=== PATIENT | female | born 1980 | race Caucasian/White ===

== ENCOUNTER 2016-11-25 08:01 | Emergency (ER) | payer SELFPAY ==
[2016-11-25 08:09] VITALS: BP 116/66
--- NOTE | 2016-11-25 09:27 | ER Document Report ---
HPI - HPI Patient complains to provider of: dental pain Onset: This morning Onset/Duration: Sudden Quality of pain: Achy, Throbbing Severity: Severe Pain Level: 4 Context: Patient presents to the emergency department with complaints of right upper dental pain that started this morning. She reports she drank her coffee and had extreme pain. She denies recent fracture. She denies other symptoms such as fever vomiting diarrhea. Associated Symptoms: None Exacerbated by: Other - Hot coffee Relieved by: Denies Similar symptoms previously: No Recently seen / treated by doctor: No - REPRODUCTIVE Reproductive: DENIES: : - DERM Skin Color: Normal Past Medical History - General Information source: Patient Last Menstrual Period: current - Social History Smoking Status: Current Some Day Smoker Cigarette use (# per day): Yes Chew tobacco use (# tins/day): No Frequency of alcohol use: Occasional Drug Abuse: None Family History: CAD, Hyperlipidemia, Hypertension, Malignancy - mother's side: grandpa had a brain tumor, Thyroid Disfunction, Other - mother has hx of migraines Patient has suicidal ideation: No Patient has homicidal ideation: No - Past Medical History Cardiac Medical History: Denies: Hx Heart Attack, Hx Hypertension Pulmonary Medical History: Reports: Hx Pneumonia Neurological Medical History: Reports: Hx Migraine. Denies: Hx Seizures Renal/ Medical History: Denies: Hx Peritoneal Dialysis Musculoskeltal Medical History: Denies Hx Arthritis, Reports Hx Musculoskeletal Deformity, Reports Hx Musculoskeletal Trauma Traumatic Medical History: Reports: Hx Fractures Past Surgical History: Reports: Hx Abdominal Surgery - gastric bypass, Hx Gastric Bypass Surgery, Hx Tubal Ligation. Denies: Hx Pacemaker - Immunizations Immunizations up to date: Yes Hx Diphtheria, Pertussis, Tetanus Vaccination: Yes Vertical Provider Document - CONSTITUTIONAL Agree With Documented VS: Yes Exam Limitations: No Limitations General Appearance: WD/WN, No Apparent Distress - INFECTION CONTROL TRAVEL OUTSIDE OF THE [place] IN LAST 30 DAYS: No - HEENT HEENT: Atraumatic, Normocephalic Mouth Diagram: 1 - No obvious cavity opens mouth wide clear voice no induration no swelling redness no ludwiqa, good airway - NECK Neck: Normal Inspection, Supple. negative: Lymphadenopathy-Left, Lymphadenopathy-Right - RESPIRATORY Respiratory: Breath Sounds Normal, No Respiratory Distress O2 Sat by Pulse Oximetry: 99 - CARDIOVASCULAR Cardiovascular: Regular Rate - MUSCULOSKELETAL/EXTREMETIES Musculoskeletal/Extremeties: LEO REEDER - NEURO Level of Consciousness: Awake, Alert, Appropriate Motor/Sensory: No Motor Deficit - DERM Integumentary: Warm, Dry Course - Re-evaluation Re-evalutation: 11/25/16 Patient provided with dental resource information - Vital Signs Vital signs: Temp Pulse Resp BP Pulse Ox 97.4 F 92 16 116/66 99 11/25/16 08:07 11/25/16 08:07 11/25/16 08:07 11/25/16 08:07 11/25/16 08:07 Discharge - Discharge Clinical Impression: Pain, dental Condition: Stable Disposition: HOME, SELF-CARE Instructions: Penicillin V K ([facility]), Toothache ([facility]), [facility], Ibuprofen (General) ([facility]) Additional Instructions: *You have been evaluated for dental pain *Take medications as prescribed *Follow up with dentist within one week for treatment *Return to ED for worsening condition, changes, needs Prescriptions: Ibuprofen [Motrin 800 mg Tablet] 800 mg PO TID #30 tablet Penicillin V Potassium [Penicillin Vk 500 mg Tablet] 500 mg PO BID #20 tablet Forms: Return to Work
== END 2016-11-25 09:37 | disposition home or self-care (01) ==
LOC: ER 08:01
DX: K08.89 Other specified disorders of teeth and supporting structures (principal); F17.210 Nicotine dependence, cigarettes, uncomplicated
CPT/HCPCS: 99282

== ENCOUNTER 2017-03-24 01:23 | Emergency (ER) | payer BC ==
[2017-03-24] MEDS ORDERED: TRAMADOL HCL 50 MG TABLET PO ONE (02:42)
--- NOTE | 2017-03-24 03:57 | ER Document Report ---
ED General - General Chief Complaint: Fall Stated Complaint: FALL/TAILBONE INJURY Time Seen by Provider: 03/24/17 02:36 Notes: Patient is a 36-year-old female presents for complaint of pain over her sacral area. Patient said falling backwards onto a bar. She has a contusion right over her superior gluteal cleft. She denies any other injuries or trauma. TRAVEL OUTSIDE OF THE [place] IN LAST 30 DAYS: No - Related Data Allergies/Adverse Reactions: No Known Allergies Allergy (Verified 11/25/16 08:07) Past Medical History - Social History Smoking Status: Current Every Day Smoker Chew tobacco use (# tins/day): No Frequency of alcohol use: Occasional Drug Abuse: None Family History: CAD, Hyperlipidemia, Hypertension, Malignancy - mother's side: grandpa had a brain tumor, Thyroid Disfunction, Other - mother has hx of migraines Patient has suicidal ideation: No Patient has homicidal ideation: No - Past Medical History Cardiac Medical History: Denies: Hx Heart Attack, Hx Hypertension Pulmonary Medical History: Reports: Hx Pneumonia Neurological Medical History: Reports: Hx Migraine. Denies: Hx Seizures Renal/ Medical History: Denies: Hx Peritoneal Dialysis Musculoskeltal Medical History: Denies Hx Arthritis, Reports Hx Musculoskeletal Deformity, Reports Hx Musculoskeletal Trauma Traumatic Medical History: Reports: Hx Fractures Past Surgical History: Reports: Hx Abdominal Surgery - gastric bypass, Hx Gastric Bypass Surgery, Hx Tubal Ligation. Denies: Hx Pacemaker - Immunizations Immunizations up to date: Yes Hx Diphtheria, Pertussis, Tetanus Vaccination: Yes Review of Systems - Review of Systems Notes: My Normal Review Basic REVIEW OF SYSTEMS: CONSTITUTIONAL : Denies fever, chills, or sweats. Denies recent illness. MUSCULOSKELETAL: Pain over her superior gluteal cleft. SKIN: Denies rash or skin lesions. NEUROLOGICAL: Denies sensory or motor loss. ALL OTHER SYSTEMS REVIEWED AND NEGATIVE. Physical Exam - Vital signs Vitals: Temp Pulse Resp BP Pulse Ox 97.6 F 108 H 18 143/86 H 97 03/24/17 02:02 03/24/17 02:02 03/24/17 02:02 03/24/17 02:02 03/24/17 02:02 - Notes Notes: General Appearance: Well nourished, alert, cooperative, no acute distress, moderate obvious discomfort. Vitals: reviewed, See vital signs table. Eyes: PERRL, EOMI, Conjuctiva clear Back: Patient has an actual Ad over the gluteal cleft where she fell onto the bar periods regular. His no break in skin. She does have found to palpation over the upper sacrum. Extremities: strength 5/5 in all extremities, good pulses in all extremities, no swelling or tenderness in the extremities, no edema. Skin: warm, dry, appropriate color, no rash Neuro: speech clear, oriented x 3, normal affect, responds appropriately to questions. Patient is standing walk around the room. Her gait is normal. She' s able stand on her toes. Course - Vital Signs Vital signs: Temp Pulse Resp BP Pulse Ox 97.6 F 89 16 139/88 H 96 03/24/17 04:02 03/24/17 04:02 03/24/17 04:02 03/24/17 04:02 03/24/17 04:02 - Transfer of Care Notes: 03/24/17 05:57 X-ray was negative for fracture. Patient will be given pain medication. Informed to return to ER shows worsening pain or she feels unwell. Patient given a work note. Patient agrees with plan will be discharged home. Dictation of this chart was performed using voice recognition software; therefore, there may be some unintended grammatical errors. Discharge - Discharge Clinical Impression: Contusion Qualifiers: Encounter type: initial encounter Contusion area: lower back Qualified Code(s) : S30.0XXA - Contusion of lower back and pelvis, initial encounter Condition: Good Disposition: HOME, SELF-CARE Instructions: Oral Narcotic Medication ([facility]) Additional Instructions: Your x-rays showed no evidence of a break or fracture. I have prescribed you some pain medication to help with the pain. Please do not drive when taking the pain medication. Please follow up with your doctor in 2-3 days for reevaluation. Prescriptions: Tramadol HCl [Ultram 50 mg Tablet] 50 mg PO Q6HP PRN #10 tablet PRN Reason: Forms: Return to Work
[2017-03-24 04:02] VITALS: BP 139/88
== END 2017-03-24 04:01 | disposition home or self-care (01) ==
LOC: ER 01:23
DX: S30.0XXA Contusion of lower back and pelvis, initial encounter (principal); W19.XXXA Unspecified fall, initial encounter; F17.200 Nicotine dependence, unspecified, uncomplicated; Z98.84 Bariatric surgery status
CPT/HCPCS: 72220; 99284

== ENCOUNTER 2017-10-12 08:46 | Outpatient (CLI) | payer BC ==
[~2017-10-12 08:46] MED LIST: FERRIC CARBOXYMALTOSE 750 MG in NORMAL SALINE 250 ML IV PRN; NORMAL SALINE 250 ML IV PRN
[2017-10-12 10:25] VITALS: BP 115/63
== END 2017-10-12 10:31 | disposition home or self-care (01) ==
LOC: II 08:46 → 5TH 08:49 → II 10:31
PROVIDERS: ATTEND Internal Medicine Hematology & Oncology
PROC: 3E033GC Introduction of Other Therapeutic Substance into Peripheral Vein, Percutaneous Approach (ICD-10-PCS; principal; 2017-10-12)
DX: D50.9 Iron deficiency anemia, unspecified (principal); K90.9 Intestinal malabsorption, unspecified
CPT/HCPCS: 96374; J7050; J1439; 96367

== ENCOUNTER 2017-12-31 17:37 | Emergency (ER) | payer SELFPAY ==
--- NOTE | 2017-12-31 18:44 | ER Document Report ---
ED Medical Screen (RME) - General Chief Complaint: Breathing Difficulty Stated Complaint: BACK PAIN Time Seen by Provider: 12/31/17 18:38 Mode of Arrival: Ambulatory Information source: Patient TRAVEL OUTSIDE OF THE [place] IN LAST 30 DAYS: No - HPI Onset: Yesterday - LAST NIGHT Onset/Duration: Constant Context: Patient describes sharp pain of a mechanical nature, worse when she takes a deep breath or coughs. The pain seems to originate in the xiphoid area and radiates bilaterally around the lower rib cage, ending in the intrascapular area and the back. The pain is symmetrical. Quality of pain: Sharp Associated Symptoms: denies: Abdominal pain, Chills, Cough (productive), Cough ( nonproductive), Fever, Nausea, Shortness of breath, Vomiting Exacerbated by: Coughing, Deep breathing Relieved by: Remaining still - Related Data Smoking: Cigarettes Frequency of alcohol use: None Drug Abuse: None Allergies/Adverse Reactions: No Known Allergies Allergy (Verified 12/31/17 17:37) Past Medical History - General Information source: Patient - Social History Cigarette use (# per day): Yes Chew tobacco use (# tins/day): No Frequency of alcohol use: None Drug Abuse: None Lives with: Friend Family history: None - Past Medical History Cardiac Medical History: Reports: None Denies: Hx Heart Attack, Hx Hypertension Pulmonary Medical History: Reports: Hx Pneumonia Neurological Medical History: Reports: Hx Migraine. Denies: Hx Seizures Endocrine Medical History: Reports: None Renal/ Medical History: Reports: None. Denies: Hx Peritoneal Dialysis Malignancy Medical History: Reports: None GI Medical History: Reports: None Musculoskeltal Medical History: Denies Hx Arthritis, Reports Hx Musculoskeletal Deformity, Reports Hx Musculoskeletal Trauma Psychiatric Medical History: Reports: None Traumatic Medical History: Reports: Hx Fractures Past Surgical History: Reports: Hx Abdominal Surgery - gastric bypass, Hx Gastric Bypass Surgery, Hx Tubal Ligation. Denies: Hx Pacemaker - Immunizations Immunizations up to date: Yes Hx Diphtheria, Pertussis, Tetanus Vaccination: Yes Review of Systems - Review of Systems Constitutional: No symptoms reported EENT: No symptoms reported Cardiovascular: See HPI Respiratory: See HPI Gastrointestinal: No symptoms reported Genitourinary: No symptoms reported Musculoskeletal: No symptoms reported Skin: No symptoms reported Neurological/Psychological: No symptoms reported Physical Exam - Vital signs Vitals: Temp Pulse Resp BP Pulse Ox 98.5 F 76 18 128/74 H 100 12/31/17 18:04 12/31/17 18:04 12/31/17 18:04 12/31/17 18:04 12/31/17 18:04 Interpretation: Normal. No: Hypertensive, Tachycardic, Tachypneic - General General appearance: Appears well, Alert In distress: None - HEENT Head: Normocephalic Eyes: Normal Conjunctiva: Normal Ears: Normal Nasal: Normal Mouth/Lips: Normal Mucous membranes: Normal - Respiratory Respiratory status: No respiratory distress Breath sounds: Normal - Cardiovascular Rhythm: Regular Heart sounds: Normal auscultation Murmur: No - Abdominal Inspection: Morbidly Obese - Extremities General upper extremity: Normal inspection General lower extremity: Normal inspection. No: Edema - Neurological Neuro grossly intact: Yes Cognition: Normal Orientation: AAOx4 - Psychological Associated symptoms: Normal affect, Normal mood - Skin Skin Temperature: Warm Skin Moisture: Dry Skin Color: Normal Skin Turgor: Elastic Course - Vital Signs Vital signs: Temp Pulse Resp BP Pulse Ox 98.5 F 76 18 128/74 H 100 12/31/17 18:04 12/31/17 18:04 12/31/17 18:04 12/31/17 18:04 12/31/17 18:04
[2017-12-31] MEDS ORDERED: ASPIRIN 81 MG TABLET, CHEWABLE PO ONE (18:47)
[2017-12-31 19:26] LABS: ABSOLUTE BASOPHILS # (AUTO) 0.1 10^3/uL (0.0-0.2); ABSOLUTE EOSINOPHILS # (AUTO) 0.1 10^3/uL (0.0-0.6); ABSOLUTE LYMPHOCYTES (AUTO) 1.9 10^3/uL (0.5-4.7); ABSOLUTE MONOCYTES (AUTO) 0.6 10^3/uL (0.1-1.4); ABSOLUTE NEUT (AUTO) 5.1 10^3/uL (1.7-8.2); BASOPHILS % (AUTO) 1.1 % (0-2); EOSINOPHILS % (AUTO) 1.3 % (0-6); HEMATOCRIT 40.2 % (36.0-47.0); HEMOGLOBIN 13.6 g/dL (12.0-15.5); LYMPHOCYTES % (AUTO) 24.2 % (13-45); MEAN CORPUSCULAR HEMOGLOBIN 28.2 pg (27.0-33.4); MEAN CORPUSCULAR HGB CONC 33.8 g/dL (32.0-36.0); MEAN CORPUSCULAR VOLUME 83 fl (80-97); MONOCYTES % (AUTO) 7.3 % (3-13); PLATELET COUNT 242 10^3/uL (150-450); RED BLOOD COUNT 4.83 10^6/uL (3.72-5.28); RED CELL DISTRIBUTION WIDTH 23.9 % (11.5-14.0); SEGMENTED NEUTROPHILS % (AUTO) 66.1 % (42-78); TOTAL CELLS COUNTED % (AUTO) 100 %; WHITE BLOOD COUNT 7.7 10^3/uL (4.0-10.5)
[2017-12-31 19:33] LABS: APPEARANCE,URINE CLOUDY; BILIRUBIN,URINE NEGATIVE (NEGATIVE); COLOR,URINE YELLOW; GLUCOSE, URINE NEGATIVE (NEGATIVE); KETONES,URINE NEGATIVE (NEGATIVE); LEUKOCYTE ESTERASE,URINE LARGE (NEGATIVE); NITRITE,URINE POSITIVE (NEGATIVE); PROTEIN,URINE 30 mg/dL (NEGATIVE); URINE SPECIFIC GRAVITY 1.019; UROBILINOGEN,URINE NEGATIVE mg/dL (<2.0)
[2017-12-31 19:44] LABS: ALANINE AMINOTRANSFERASE 27 U/L (9-52); ALBUMIN 4.4 g/dL (3.5-5.0); ALKALINE PHOSPHATASE 90 U/L (38-126); ANION GAP 10 (5-19); ASPARTATE AMINO TRANSFERASE 29 U/L (14-36); BILIRUBIN,DIRECT 0.5 mg/dL (0.0-0.4); BILIRUBIN,TOTAL 0.5 mg/dL (0.2-1.3); BLOOD UREA NITROGEN 16 mg/dL (7-20); CALCIUM 9.4 mg/dL (8.4-10.2); CARBON DIOXIDE 24 mmol/L (22-30); CHLORIDE 106 mmol/L (98-107); CREATINE KINASE 93 U/L (30-135); GLUCOSE 94 mg/dL (75-110); POTASSIUM 4.2 mmol/L (3.6-5.0); SODIUM 139.5 mmol/L (137-145); TOTAL PROTEIN 7.9 g/dL (6.3-8.2)
[2017-12-31 19:56] LABS: CREATINE KINASE MB 0.34 ng/mL (<4.55)
[2017-12-31 19:58] LABS: TROPONIN I < 0.012 ng/mL
--- NOTE | 2017-12-31 20:04 | RADIOLOGY REPORT (SQ) ---
EXAM DESCRIPTION: CHEST PA/LAT COMPLETED DATE/TIME: 12/31/2017 7:27 pm REASON FOR STUDY: CHEST PAIN COMPARISON: 2016. TECHNIQUE: Frontal and lateral radiographic views of the chest acquired. NUMBER OF VIEWS: Two view. LIMITATIONS: None. FINDINGS: LUNGS AND PLEURA: No opacities, masses or pneumothorax. No pleural effusion. MEDIASTINUM AND HILAR STRUCTURES: Small hiatal hernia. Stable contours. No suspicious abnormality. HEART AND VASCULAR STRUCTURES: Heart normal size. No evidence for failure. BONES: No acute findings. HARDWARE: None in the chest. OTHER: No other significant finding. IMPRESSION: No acute cardiopulmonary disease. Small hiatal hernia. TECHNICAL DOCUMENTATION: JOB ID: [id number] [employer]- All Rights Reserved
[2017-12-31 20:09] LABS: ANISOCYTOSIS 3+; OVALOCYTES SLIGHT; PLATELET COMMENT ADEQUATE; POIKILOCYTOSIS SLIGHT
--- NOTE | 2017-12-31 22:06 | ER Document Report ---
ED General - General Chief Complaint: Breathing Difficulty Stated Complaint: BACK PAIN Time Seen by Provider: 12/31/17 18:38 Mode of Arrival: Ambulatory Notes: Patient is a 37-year-old female presents with complaint of pain. She says she first has some pain over the xiphoid process that is worse when she coughs or takes deep breath or moves. Patient second pain is a pain over her bilateral lower back. Patient's says she feels that these pains are will be a separate. She does admit that she is a little bit of dysuria. No abdominal pain. No abnormal vaginal discharge bleeding. No fevers. No leg pain or leg swelling. No history of PE or DVT. No other complaints at this time. TRAVEL OUTSIDE OF THE [place] IN LAST 30 DAYS: No - Related Data Allergies/Adverse Reactions: No Known Allergies Allergy (Verified 12/31/17 17:37) Past Medical History - General Information source: Patient - Social History Smoking Status: Current Every Day Smoker Cigarette use (# per day): Yes Chew tobacco use (# tins/day): No Frequency of alcohol use: None Drug Abuse: None Lives with: Friend Family History: CAD, Hyperlipidemia, Hypertension, Malignancy - mother's side: grandpa had a brain tumor, Thyroid Disfunction, Other - mother has hx of migraines Patient has suicidal ideation: No Patient has homicidal ideation: No - Past Medical History Cardiac Medical History: Reports: None Denies: Hx Heart Attack, Hx Hypertension Pulmonary Medical History: Reports: Hx Pneumonia Neurological Medical History: Reports: Hx Migraine. Denies: Hx Seizures Endocrine Medical History: Reports: None Renal/ Medical History: Reports: None. Denies: Hx Peritoneal Dialysis Malignancy Medical History: Reports: None GI Medical History: Reports: None Musculoskeltal Medical History: Denies Hx Arthritis, Reports Hx Musculoskeletal Deformity, Reports Hx Musculoskeletal Trauma Psychiatric Medical History: Reports: None Traumatic Medical History: Reports: Hx Fractures Past Surgical History: Reports: Hx Abdominal Surgery - gastric bypass, Hx Gastric Bypass Surgery, Hx Tubal Ligation. Denies: Hx Pacemaker - Immunizations Immunizations up to date: Yes Hx Diphtheria, Pertussis, Tetanus Vaccination: Yes Review of Systems - Review of Systems Notes: My Normal Review Basic REVIEW OF SYSTEMS: CONSTITUTIONAL : Denies fever, chills, or sweats. Denies recent illness. EENT: Denies eye, ear, throat, or mouth pain or symptoms. Denies nasal or sinus congestion. CARDIOVASCULAR: Pain over lower chest over the xiphoid process area. RESPIRATORY: Denies cough, cold, or chest congestion. Denies shortness of breath, difficulty breathing, or wheezing. GASTROINTESTINAL: Denies abdominal pain. Denies nausea, vomiting, or diarrhea. Denies constipation. Last BM: GENITOURINARY: Some dysuria. FEMALE GENITOURINARY: Denies vaginal bleeding, abnormal or irregular periods. MUSCULOSKELETAL: Some pain over lower back. SKIN: Denies rash or skin lesions. NEUROLOGICAL: Denies altered mental status or loss of consciousness. Denies headache. Denies weakness or paralysis or loss of use of either side. Denies problems with gait or speech. Denies sensory or motor loss. ALL OTHER SYSTEMS REVIEWED AND NEGATIVE. Physical Exam - Vital signs Vitals: Temp Pulse Resp BP Pulse Ox 98.5 F 76 18 128/74 H 100 12/31/17 18:04 12/31/17 18:04 12/31/17 18:04 12/31/17 18:04 12/31/17 18:04 - Notes Notes: General Appearance: Well nourished, alert, cooperative, no acute distress, mild obvious discomfort. Well Appearing Vitals: reviewed, See vital signs table. Head: no swelling or tenderness to the head Eyes: PERRL, EOMI, Conjuctiva clear Mouth: No decreasd moisture Throat: No tonsillar inflammation, No airway obstruction, No lymphadenopathy Neck: Supple, no neck tenderness, No thyromegaly Chest wall: Some pain to palpation over the xiphoid process over the anterior chest. Lungs: No wheezing, No rales, No rhonci, No accessory muscle use, good air exchange bilaterally. Heart: Normal rate, Regular rythm, No murmur, no rub Abdomen: Normal BS, soft, No rigidity, No abdominal tenderness, No guarding, no rebound, no abdominal masses, no organomegaly Back: Mild pain over the bilateral kidneys to palpation. Extremities: strength 5/5 in all extremities, good pulses in all extremities, no swelling or tenderness in the extremities, no edema. Skin: warm, dry, appropriate color, no rash Neuro: speech clear, oriented x 3, normal affect, responds appropriately to questions. Course - Re-evaluation Re-evalutation: 12/31/17 22:25 Patient presents with 2 different kinds of pain. First pain is back pain. I suspect this probably pain related to her kidney infection. Urinalysis shows overwhelming evidence of a kidney infection. I will place her on antibiotics. Patient also presents with lower pain over the xiphoid area. She is very tender to palpation over this area. Also worse when she takes a deep breath. I suspect this most likely musculoskeletal. She has no risk factors for PE. She is purple negative. I do not feel that she needs any further workup for PE. I did explain this to her. Patient is understanding of this. I informed her that she still have a low threshold to return to ER if she has worsening pain, difficulty breathing, fevers, or feels unwell. Also gave her a list of family doctors follow-up with. Patient agrees with plan and she will be discharged home. Dictation of this chart was performed using voice recognition software; therefore, there may be some unintended grammatical errors. - Vital Signs Vital signs: Temp Pulse Resp BP Pulse Ox 98.3 F 74 18 131/65 H 100 12/31/17 22:46 12/31/17 22:46 12/31/17 22:46 12/31/17 22:46 12/31/17 22:46 - Laboratory Result Diagrams: 12/31/17 19:10 12/31/17 19:10 Laboratory results interpreted by me: 12/31/17 12/31/17 12/31/17 19:10 19:10 19:10 RDW 23.9 H Direct Bilirubin 0.5 H Urine Protein 30 H Urine Blood MODERATE H Urine Nitrite POSITIVE H Ur Leukocyte Esterase LARGE H - EKG Interpretation by Me Additional EKG results interpreted by me: 12/31/17 22:05 EKG is reviewed and interpreted by me. EKG shows normal sinus rhythm with a rate of [address] segment elevation or depression. No ischemic T-wave inversions. W[place] interval, QRS duration, QTc intervals are within normal range. Old EKG for comparison is from April 06, 2013. Discharge - Discharge Clinical Impression: UTI (urinary tract infection) Qualifiers: Urinary tract infection type: site unspecified Hematuria presence: without hematuria Qualified Code(s): N39.0 - Urinary tract infection, site not specified Chest pain Qualifiers: Chest pain type: unspecified Qualified Code(s): R07.9 - Chest pain, unspecified Condition: Good Disposition: HOME, SELF-CARE Instructions: Family Physicians / Practices Additional Instructions: Your urine study shows you have a UTI. Please take the antibiotics as prescribed. Please return to the ER if you have fevers, vomiting, or worsening back pain. Please take ibuprofen for your pain. Please return to the ER if you have worsening chest pain or feel unwell. Your chest pain seems musculoskeletal in that it is reproducible with palpation. Testing looking at your heart was normal. Even though your testing is normal we still encourage you to return to the ER if you have any worsening of your symptoms.Please follow up with a doctor in 5 days for reevaluation. Prescriptions: Cephalexin Monohydrate [Keflex 500 mg Capsule] 500 mg PO BID #14 capsule
--- NOTE | 2017-12-31 22:18 | EKG REPORT ---
SEVERITY:- NORMAL ECG - SINUS RHYTHM : Confirmed by: Charlie Peterson 31-Dec-2017 22:18:07
[2017-12-31] MEDS ORDERED: CEPHALEXIN 500 MG CAPSULE PO ONE (22:26)
[2017-12-31 22:48] VITALS: BP 131/65
== END 2017-12-31 22:58 | disposition home or self-care (01) ==
LOC: ER 17:37
DX: N39.0 Urinary tract infection, site not specified (principal); R07.9 Chest pain, unspecified; R06.02 Shortness of breath; M54.9 Dorsalgia, unspecified; R30.0 Dysuria; F17.210 Nicotine dependence, cigarettes, uncomplicated
CPT/HCPCS: 36415; 71046; 80053; 81001; 82550; 82553; 84484; 85025; 93005; 93010; 99284

== ENCOUNTER 2018-03-07 14:09 | Emergency (ER) | payer OTHER ==
[2018-03-07 14:21] VITALS: BP 103/67
--- NOTE | 2018-03-07 14:31 | ER Document Report ---
HPI - HPI Pain Level: 4 - REPRODUCTIVE Reproductive: DENIES: : Past Medical History - Social History Family History: CAD, Hyperlipidemia, Hypertension, Malignancy - mother's side: grandpa had a brain tumor, Thyroid Disfunction, Other - mother has hx of migraines - Past Medical History Cardiac Medical History: Denies: Hx Heart Attack, Hx Hypertension Pulmonary Medical History: Reports: Hx Pneumonia Neurological Medical History: Reports: Hx Migraine. Denies: Hx Seizures Renal/ Medical History: Denies: Hx Peritoneal Dialysis Musculoskeltal Medical History: Denies Hx Arthritis, Reports Hx Musculoskeletal Deformity, Reports Hx Musculoskeletal Trauma Traumatic Medical History: Reports: Hx Fractures Past Surgical History: Reports: Hx Abdominal Surgery - gastric bypass, Hx Gastric Bypass Surgery, Hx Tubal Ligation. Denies: Hx Pacemaker - Immunizations Immunizations up to date: Yes Hx Diphtheria, Pertussis, Tetanus Vaccination: Yes Vertical Provider Document - INFECTION CONTROL TRAVEL OUTSIDE OF THE [place] IN LAST 30 DAYS: No Course - Vital Signs Vital signs: Temp Pulse Resp BP Pulse Ox 97.9 F 113 H 20 103/67 97 03/07/18 14:14 03/07/18 14:14 03/07/18 14:14 03/07/18 14:14 03/07/18 14:14
[2018-03-07] MEDS ORDERED: DEXAMETHASONE SOD PHOS INJ 10 MG/1 ML VIAL IM ONE (14:33)
[2018-03-07] MEDS ORDERED: KETOROLAC TROMETHAMINE INJ/PF 30 MG/1 ML SDV IM ONE (14:33)
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
== END 2018-03-07 15:00 | disposition home or self-care (01) ==
LOC: ER 14:09
DX: M54.2 Cervicalgia (principal); M54.6 Pain in thoracic spine; M54.5 Low back pain; R51 Headache; Z98.84 Bariatric surgery status; Z98.51 Tubal ligation status
CPT/HCPCS: 99283; 96372; J1885; J1100

== ENCOUNTER 2018-04-30 23:32 | Emergency (ER) | payer OTHER ==
[2018-05-01 00:51] LABS: ABSOLUTE BASOPHILS # (AUTO) 0.1 10^3/uL (0.0-0.2); ABSOLUTE EOSINOPHILS # (AUTO) 0.1 10^3/uL (0.0-0.6); ABSOLUTE LYMPHOCYTES (AUTO) 1.9 10^3/uL (0.5-4.7); ABSOLUTE MONOCYTES (AUTO) 0.5 10^3/uL (0.1-1.4); ABSOLUTE NEUT (AUTO) 3.8 10^3/uL (1.7-8.2); EOSINOPHILS % (AUTO) 1.6 % (0-6); HEMOGLOBIN 12.6 g/dL (12.0-15.5); LYMPHOCYTES % (AUTO) 29.8 % (13-45); MEAN CORPUSCULAR HEMOGLOBIN 27.3 pg (27.0-33.4); MEAN CORPUSCULAR VOLUME 83 fl (80-97); MONOCYTES % (AUTO) 7.4 % (3-13); PLATELET COUNT 254 10^3/uL (150-450); RED BLOOD COUNT 4.61 10^6/uL (3.72-5.28); RED CELL DISTRIBUTION WIDTH 14.3 % (11.5-14.0); SEGMENTED NEUTROPHILS % (AUTO) 60.2 % (42-78); TOTAL CELLS COUNTED % (AUTO) 100 %; WHITE BLOOD COUNT 6.2 10^3/uL (4.0-10.5)
[2018-05-01 00:54] LABS: BILIRUBIN,URINE NEGATIVE (NEGATIVE); COLOR,URINE YELLOW; GLUCOSE, URINE NEGATIVE (NEGATIVE); KETONES,URINE NEGATIVE (NEGATIVE); LEUKOCYTE ESTERASE,URINE LARGE (NEGATIVE); NITRITE,URINE POSITIVE (NEGATIVE); PROTEIN,URINE 30 mg/dL (NEGATIVE); URINE SPECIFIC GRAVITY 1.021; UROBILINOGEN,URINE NEGATIVE mg/dL (<2.0)
[2018-05-01 00:55] LABS: APPEARANCE,URINE HAZY
[2018-05-01 01:05] LABS: ANION GAP 10 (5-19); BLOOD UREA NITROGEN 16 mg/dL (7-20); CALCIUM 9.1 mg/dL (8.4-10.2); CARBON DIOXIDE 27 mmol/L (22-30); CHLORIDE 106 mmol/L (98-107); GLUCOSE 94 mg/dL (75-110); SODIUM 142.6 mmol/L (137-145)
[2018-05-01] MEDS ORDERED: CEFTRIAXONE INJ 1000 MG VIAL IV ONE (01:11)
[2018-05-01] MEDS ORDERED: KETOROLAC TROMETHAMINE 60 MG/2 ML SDV IM ONE (01:11)
[2018-05-01] MEDS ORDERED: LIDOCAINE 1% INJ-PF (10 MG/ML) 30 ML SDV INFIL ONE (01:11)
--- NOTE | 2018-05-01 01:37 | ER Document Report ---
ED General - General Chief Complaint: Flank Pain Stated Complaint: FLANK PAIN Time Seen by Provider: 05/01/18 00:31 Notes: Patient is a 37-year-old female with a history of morbid obesity who presents with bilateral flank tenderness that has been progressively worsening over the last 4 days. She describes as a throbbing, aching, constant pain. Nothing improves or worsens this pain. She denies a history of similar symptoms in the past. She does note some associated mild dysuria. She has not had fever or constitutional symptoms. She has not seen her general doctor regarding today's concerns. She does also note that her left knee has hurt for the past 3-4 weeks , is worsened by bending or standing for prolonged periods of time. She does however note that this is not her reason for the emergency department visit [place]. TRAVEL OUTSIDE OF THE [place] IN LAST 30 DAYS: No - Related Data Allergies/Adverse Reactions: No Known Allergies Allergy (Verified 03/07/18 14:10) Past Medical History - General Information source: Patient - Social History Smoking Status: Current Some Day Smoker Frequency of alcohol use: Occasional Drug Abuse: None Lives with: Spouse/Significant other Family History: CAD, Hyperlipidemia, Hypertension, Malignancy - mother's side: grandpa had a brain tumor, Thyroid Disfunction, Other - mother has hx of migraines Patient has suicidal ideation: No Patient has homicidal ideation: No - Past Medical History Cardiac Medical History: Denies: Hx Heart Attack, Hx Hypertension Pulmonary Medical History: Reports: Hx Pneumonia Neurological Medical History: Reports: Hx Migraine. Denies: Hx Seizures Renal/ Medical History: Denies: Hx Peritoneal Dialysis Musculoskeltal Medical History: Denies Hx Arthritis, Reports Hx Musculoskeletal Deformity, Reports Hx Musculoskeletal Trauma Traumatic Medical History: Reports: Hx Fractures Past Surgical History: Reports: Hx Abdominal Surgery - gastric bypass, Hx Gastric Bypass Surgery, Hx Tubal Ligation. Denies: Hx Pacemaker - Immunizations Immunizations up to date: Yes Hx Diphtheria, Pertussis, Tetanus Vaccination: Yes Review of Systems - Review of Systems Notes: Constitutional: Negative for fever. HENT: Negative for sore throat. Eyes: Negative for visual changes. Cardiovascular: Negative for chest pain. Respiratory: Negative for shortness of breath. Gastrointestinal: Positive for bilateral flank pain Genitourinary: Positive for dysuria. Musculoskeletal: Negative for back pain. Skin: Negative for rash. Neurological: Negative for headaches, weakness or numbness. 10 point ROS negative except as marked above and in HPI. Physical Exam - Vital signs Vitals: Temp Pulse Resp BP Pulse Ox 98.7 F 95 16 115/74 99 04/30/18 23:36 04/30/18 23:36 04/30/18 23:36 04/30/18 23:36 04/30/18 23:36 Interpretation: Normal Notes: PHYSICAL EXAMINATION: GENERAL: Well-appearing, well-nourished and in no acute distress. HEAD: Atraumatic, normocephalic. EYES: Pupils equal round and reactive to light, extraocular movements intact, sclera anicteric, conjunctiva are normal. ENT: nares patent, oropharynx clear without exudates. Moist mucous membranes. NECK: Normal range of motion, supple without lymphadenopathy LUNGS: Breath sounds clear to auscultation bilaterally and equal. No wheezes rales or rhonchi. HEART: Regular rate and rhythm without murmurs ABDOMEN: Soft, nontender, normoactive bowel sounds. No guarding, no rebound. No masses appreciated. Bilateral CVA tenderness to palpation. EXTREMITIES: Normal range of motion, no pitting or edema. No cyanosis. NEUROLOGICAL: No focal neurological deficits. Moves all extremities spontaneously and on command. PSYCH: Normal mood, normal affect. SKIN: Warm, Dry, normal turgor, no rashes or lesions noted. Course - Re-evaluation Re-evalutation: 05/01/18 01:35 Presentation is most consistent with acute pyelonephritis. Laboratories do demonstrate a large amount of white blood cells in the urine as well as bacteria. CVA tenderness is present on exam. I do not suspect an acute appendicitis, biliary pathology, pancreatitis, intra-abdominal abscess, or tubo- ovarian abscess based on history and examination. Patient has been given a dose of ceftriaxone. Patient is able to tolerate oral intake without difficulty. Will be discharged home on 7 day course of cephalexin. A urine culture has been sent. The patient was also complaining of some chronic left knee pain. Knee examination without any erythema, induration, mild pain on palpation of the inferior lateral patella. Suspect arthritis in association with the patient 's morbid obesity. No imaging indicated at this time point. I have encouraged outpatient follow-up for this issue. At this time will discharge with return precautions and follow-up recommendations. Verbal discharge instructions given a the bedside and opportunity for questions given. Medication warnings reviewed. Patient is in agreement with this plan and has verbalized understanding of return precautions and the need for primary care follow-up in the next 24-72 hours. - Vital Signs Vital signs: Temp Pulse Resp BP Pulse Ox 98 F 80 20 117/75 99 05/01/18 01:40 05/01/18 01:40 05/01/18 01:40 05/01/18 01:40 05/01/18 01:40 - Laboratory Result Diagrams: 05/01/18 00:40 05/01/18 00:40 Laboratory results interpreted by me: 05/01/18 05/01/18 00:32 00:40 RDW 14.3 H Urine Protein 30 H Urine Blood MODERATE H Urine Nitrite POSITIVE H Ur Leukocyte Esterase LARGE H Discharge - Discharge Clinical Impression: Pyelonephritis, Bilateral flank pain, Morbid obesity Left knee pain Qualifiers: Chronicity: acute Qualified Code(s): M25.562 - Pain in left knee Condition: Good Disposition: HOME, SELF-CARE Additional Instructions: You have been diagnosed with a condition called pyelonephritis which is an infection involving your kidneys and bladder. You have been given a dose of antibiotics here in the emergency department to help begin to treat this infection. Your also being sent home on antibiotics. Please start taking these later on today when you fill the prescription. Complete the course even if you feel better. Please return if you have persistent vomiting, pass out, have worsening pain, become unable to tolerate fluids, or have any other symptoms that are concerning to you. Please follow-up with your primary care physician in the next 24-48 hours. As we discussed today, please strongly consider losing weight. Your obesity will result in a shorter life and serious diagnoses including heart attacks, stroke, diabetes, high blood pressure, high cholesterol, kidney failure, and will also result in a much less enjoyable life due to these chronic conditions. Focus on gradual life style changes including removing sugared beverages and processed foods from your diet and at least 30 minutes of moderate activity daily. Try to target 4-5lbs of weight loss per month. Her left knee pain is likely due to arthritis as well as your weight. Take the naproxen that has been prescribed as needed for your pain. Continue to apply ice to the area is much your able. Please follow-up with your primary care physician if you do not have improving your symptoms in the next 1-2 weeks. Please return immediately if you develop weakness, numbness, spreading redness from the area, or any other symptoms that are concerning to you. Prescriptions: Cephalexin Monohydrate [Keflex 500 mg Capsule] 500 mg PO Q6H 7 Days capsule Naproxen 500 mg PO BID #60 tablet
[2018-05-01 02:13] VITALS: BP 117/75
== END 2018-05-01 01:45 | disposition home or self-care (01) ==
LOC: ER 23:32
DX: N12 Tubulo-interstitial nephritis, not specified as acute or chronic (principal); R10.9 Unspecified abdominal pain; E66.01 Morbid (severe) obesity due to excess calories; M25.562 Pain in left knee; R30.0 Dysuria; F17.200 Nicotine dependence, unspecified, uncomplicated
CPT/HCPCS: 99284; 96372; 96365; 36415; 87086; 85025; 81025; 87088; 80048; 81001; 87186; J1885; J3490; J0696

== ENCOUNTER 2018-07-10 09:04 | Emergency (ER) | payer SELFPAY ==
--- NOTE | 2018-07-10 09:21 | ER Document Report ---
HPI - HPI Patient complains to provider of: Back pain Onset: Other - 10 years Onset/Duration: Persistent - Daily, Waxing and waning Pain Level: 5 Context: 38-year-old female complaining of right-sided low back pain that radiates into her buttocks for 10 years. It is worse this week without injury, she is crying and cannot stand the pain anymore. She has been to a chiropractor in the past which did not help. She does not have a primary care doctor. She takes Naprosyn 500 mg twice a day. It hurts to bear weight on her right leg. She is in the middle of trying to get disability for this back pain. She has had an x- ray in the past which showed a calcification at the right sacroiliac joint. And some degenerative changes. No IV drug use, no fever, no radiculopathy into the leg, no saddle anesthesia. Associated Symptoms: None Exacerbated by: Movement, Walking Relieved by: Denies - ROS ROS below otherwise negative: Yes Systems Reviewed and Negative: Yes All other systems reviewed and negative - REPRODUCTIVE Reproductive: DENIES: : Past Medical History - General Information source: Patient - Social History Smoking Status: Current Every Day Smoker Lives with: Alone Family History: CAD, Hyperlipidemia, Hypertension, Malignancy - mother's side: grandpa had a brain tumor, Thyroid Disfunction, Other - mother has hx of migraines Pulmonary Medical History: Reports: Hx Pneumonia Neurological Medical History: Reports: Hx Migraine Renal/ Medical History: Denies: Hx Peritoneal Dialysis Musculoskeletal Medical History: Reports Hx Musculoskeletal Deformity, Reports Hx Musculoskeletal Trauma Traumatic Medical History: Reports: Hx Fractures Past Surgical History: Reports: Hx Abdominal Surgery - gastric bypass, Hx Gastric Bypass Surgery, Hx Tubal Ligation - Immunizations Immunizations up to date: Yes Hx Diphtheria, Pertussis, Tetanus Vaccination: Yes Vertical Provider Document - CONSTITUTIONAL Agree With Documented VS: Yes Exam Limitations: No Limitations General Appearance: Severe Distress, Obese Notes: Anxious - INFECTION CONTROL TRAVEL OUTSIDE OF THE [place] IN LAST 30 DAYS: No - MUSCULOSKELETAL/EXTREMETIES Musculoskeletal/Extremeties: MAEW, FROM, Tender - Right sacral iliac into the buttocks area - NEURO Level of Consciousness: Awake Deep Tendon Reflexes: 2+ - Bilateral ankle and patellar - DERM Integumentary: No Rash Course - Re-evaluation Re-evalutation: 07/10/18 10:35 Mild anterior osteophyte off T11-T12, bone island in the right iliac bone no significant change since 2015. 07/10/18 10:46 Patient is crying again and wants something stronger for pain I explained that we do not treat his chronic back pain with opiates or tramadol which is opiate like they are both controlled substances. I did recommend that she get lidocaine patches to place in the area that hurts in her back - Vital Signs Vital signs: Temp Pulse Resp BP Pulse Ox 98.1 F 96 16 122/91 H 99 07/10/18 09:08 07/10/18 09:08 07/10/18 09:08 07/10/18 09:08 07/10/18 09:08 Discharge - Discharge Clinical Impression: Chronic right-sided low back pain Condition: Good Disposition: HOME, SELF-CARE Instructions: Low Back Pain ([facility]), Chronic Back Pain ([facility]), Warm Packs ([facility]), Acetaminophen, Anti-Inflammatory Medication ([facility]), Muscle Relaxers ([facility]) Additional Instructions: See a orthopedist back specialty DrVioleta See chiropractor which may help this time Muscle relaxers Tylenol up to 4000 mg a day Naprosyn 500 mg twice a day that she has been taking is fine as the anti- inflammatory Return to the emergency room if he get any numbness or tingling or inability to walk, fever, any worsening of the symptoms or change in the symptoms Prescriptions: Cyclobenzaprine HCl [Flexeril 10 Mg Tablet] 10 mg PO TIDP PRN #30 tablet PRN Reason: Referrals: JAVIER MAX MD [ACTIVE STAFF] - Follow up as needed
[2018-07-10] MEDS ORDERED: ACETAMINOPHEN 325 MG TABLET PO ONE (09:38)
[2018-07-10] MEDS ORDERED: DIAZEPAM 5 MG TABLET PO ONE (09:38)
[2018-07-10] MEDS ORDERED: KETOROLAC TROMETHAMINE 60 MG/2 ML SDV IM ONE (09:38)
[2018-07-10 10:31] VITALS: BP 113/60
--- NOTE | 2018-07-10 10:34 | RADIOLOGY REPORT (SQ) ---
EXAM DESCRIPTION: L SPINE WHOLE COMPLETED DATE/TIME: 07/10/2018 10:08 am REASON FOR STUDY: chronic low back pain COMPARISON: 12/11/2015 NUMBER OF VIEWS: Five views including obliques. TECHNIQUE: AP, lateral, oblique, and sacral radiographic images acquired of the lumbar spine. LIMITATIONS: None. FINDINGS: MINERALIZATION: Normal. SEGMENTATION: Normal. No transitional anatomy. ALIGNMENT: Normal. VERTEBRAE: Maintained height. No fracture or worrisome bone lesion. DISCS: Preserved height. No significant osteophytes or end plate irregularity. Mild anterior osteop hytes off of the T11-T12 vertebrae. POSTERIOR ELEMENTS: Pedicles and facets are intact. No pars defect or posterior arch defects. HARDWARE: None in the spine. PARASPINAL SOFT TISSUES: Normal. PELVIS: Intact as visualized. No fractures or worrisome bone lesions. SI joints intact. Small bone i sland in the right iliac bone. OTHER: Bilateral tubal ligation clips, unchanged findings. IMPRESSION: 1 No significant interval changes since the prior examination dated 12/11/2015. Normal f orlando view lumbar spine. TECHNICAL DOCUMENTATION: JOB ID: [id number] [employer]- All Rights Reserved Reading location - IP/workstation name: [email or web address]
== END 2018-07-10 10:47 | disposition home or self-care (01) ==
LOC: ER 09:04
DX: G89.29 Other chronic pain (principal); M54.5 Low back pain; F17.200 Nicotine dependence, unspecified, uncomplicated; Z98.84 Bariatric surgery status
CPT/HCPCS: 99283; 96372; 72110; J1885

== ENCOUNTER 2018-09-28 10:59 | Emergency (ER) | payer SELFPAY ==
[2018-09-28] MEDS ORDERED: DIAZEPAM 2 MG TABLET PO ONE (11:28)
[2018-09-28] MEDS ORDERED: HYDROCODONE/ACETAMINOPHEN 5-325 MG TABLET PO ONE (11:28)
--- NOTE | 2018-09-28 12:16 | RADIOLOGY REPORT (SQ) ---
EXAM DESCRIPTION: T SPINE AP/LAT COMPLETED DATE/TIME: 09/28/2018 12:08 pm REASON FOR STUDY: pain back COMPARISON: None. NUMBER OF VIEWS: Two views. TECHNIQUE: AP and lateral radiographic images acquired of the thoracic spine. LIMITATIONS: None. FINDINGS: MINERALIZATION: Normal. ALIGNMENT: Normal. No scoliosis. VERTEBRAE: No fracture or bone lesion. Maintained height, normal segmentation. DISCS: Mild multilevel disc space height loss and osteophytosis. HARDWARE: None in the spine. MEDIASTINUM AND SOFT TISSUES: Normal heart size and aortic contour. No soft tissue abnormality. VISUALIZED LUNG ZHANG: Clear. OTHER: No other significant finding. 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 No fracture or disloca tion. TECHNICAL DOCUMENTATION: JOB ID: [id number] [employer]- All Rights Reserved Reading location - IP/workstation name: [email or web address]
--- NOTE | 2018-09-28 12:23 | ER Document Report ---
ED Neck/Back Problem - General Chief Complaint: Back Pain Stated Complaint: BACK/ABDOMINAL PAIN Time Seen by Provider: 09/28/18 11:27 Mode of Arrival: Ambulatory Information source: Patient Notes: Chief complaint: Mid back pain History of complain:( obtained from----patient) 38 years old female presents today with mid back pain radiating to the front since yesterday. Anytime she moves the pain is increased in intensity. No obvious trauma but she has history of degenerative disease of the lower back. Onset: As above Duration: Gradual Severity: Moderate Quality: Sharp Context: As above Exacerbating factor and relieving factors: Any change of position REVIEW OF SYSTEMS: CONSTITUTIONAL : Denies fever, chills, or sweats. Denies recent illness. EENT: Denies eye, ear, throat, or mouth pain or symptoms. Denies nasal or sinus congestion or discharge. Denies throat, tongue, or mouth swelling or difficulty swallowing. CARDIOVASCULAR: Denies chest pain. Denies palpitations or racing or irregular heart beat. Denies ankle edema. RESPIRATORY: Denies cough, cold, or chest congestion. Denies shortness of breath, difficulty breathing, or wheezing. GASTROINTESTINAL: Denies distention. Denies nausea, vomiting, or diarrhea. Denies blood in vomitus, stools, or per rectum. Denies black, tarry stools. Denies constipation. GENITOURINARY: Denies difficulty urinating, painful urination, burning, frequency, blood in urine, or discharge. FEMALE GENITOURINARY: Denies vaginal bleeding, heavy or abnormal periods, irregular periods. Denies vaginal discharge or odor. MUSCULOSKELETAL: Denies back or neck pain or stiffness. Denies joint pain or swelling. SKIN: Denies rash, lesions or sores. HEMATOLOGIC : Denies easy bruising or bleeding. LYMPHATIC: Denies swollen, enlarged glands. NEUROLOGICAL: Denies confusion or altered mental status. Denies passing out or loss of consciousness. Denies dizziness or lightheadedness. Denies headache. Denies weakness or paralysis or loss of use of either side. Denies problems with gait or speech. Denies sensory loss, numbness, or tingling. Denies seizures. PSYCHIATRIC: Denies anxiety or stress. Denies depression, suicidal ideation, or homicidal ideation. ALL OTHER SYSTEMS REVIEWED AND NEGATIVE. PHYSICAL EXAMINATION: GENERAL: Well-appearing, well-nourished and in acute distress. HEAD: Atraumatic, normocephalic. EYES: Pupils equal round and reactive to light, extraocular movements intact, conjunctiva are normal. ENT: Nares patent, oropharynx clear without exudates. Moist mucous membranes. NECK: Normal range of motion, supple without lymphadenopathy LUNGS: Breath sounds clear to auscultation bilaterally and equal. No wheezes rales or rhonchi. Mid back-examination of the mid back around T10-T11 region sharp tenderness were noted over the paraspinal muscles. HEART: Regular rate and rhythm without murmurs ABDOMEN: Soft, nontender, nondistended abdomen. No guarding, no rebound. No masses appreciated. Examination of genitals-deferred Musculoskeletal: Normal range of motion, no pitting or edema. No cyanosis. NEUROLOGICAL: Cranial nerves grossly intact. Normal speech, normal gait. Normal sensory, motor exams PSYCH: Normal mood, normal affect. SKIN: Warm, Dry, normal turgor, no rashes or lesions noted. Dictation was performed using [employer] voice recognition software TRAVEL OUTSIDE OF THE [place] IN LAST 30 DAYS: No - HPI Notes: Dictated - Related Data Allergies/Adverse Reactions: No Known Allergies Allergy (Verified 07/10/18 09:06) Past Medical History - Social History Smoking Status: Current Some Day Smoker Chew tobacco use (# tins/day): No Frequency of alcohol use: Occasional Drug Abuse: None Lives with: Family Family History: Reviewed & Not Pertinent, CAD, Hyperlipidemia, Hypertension, Malignancy - mother's side: grandpa had a brain tumor, Thyroid Disfunction, Other - mother has hx of migraines Patient has suicidal ideation: No Patient has homicidal ideation: No - Past Medical History Cardiac Medical History: Denies: Hx Heart Attack, Hx Hypertension Pulmonary Medical History: Reports: Hx Pneumonia Neurological Medical History: Reports: Hx Migraine. Denies: Hx Seizures Renal/ Medical History: Denies: Hx Peritoneal Dialysis Musculoskeletal Medical History: Denies Hx Arthritis, Reports Hx Musculoskeletal Deformity, Reports Hx Musculoskeletal Trauma Traumatic Medical History: Reports: Hx Fractures Past Surgical History: Reports: Hx Abdominal Surgery - gastric bypass, Hx Gastric Bypass Surgery, Hx Tubal Ligation. Denies: Hx Pacemaker - Immunizations Immunizations up to date: Yes Hx Diphtheria, Pertussis, Tetanus Vaccination: Yes Review of Systems - Review of Systems Notes: Dictated Physical Exam - Vital signs Vitals: Temp Pulse Resp BP Pulse Ox 98.1 F 93 18 142/88 H 99 09/28/18 11:08 09/28/18 11:08 09/28/18 11:08 09/28/18 11:08 09/28/18 11:08 - Notes Notes: Dictated Course - Re-evaluation Re-evalutation: 09/28/18 12:21 Given pain medications - Vital Signs Vital signs: Temp Pulse Resp BP Pulse Ox 98.1 F 93 18 142/88 H 99 09/28/18 11:08 09/28/18 11:08 09/28/18 11:08 09/28/18 11:08 09/28/18 11:08 - Diagnostic Test Radiology reviewed: Reports reviewed - Reported by radiologist as thoracic degenerative joint disease Discharge - Discharge Clinical Impression: Mid-back pain, acute Condition: Fair Disposition: HOME, SELF-CARE Instructions: Muscle Strain ([facility]) Prescriptions: Diazepam [Valium 2 mg Tablet] 2 mg PO BID #10 tablet Hydrocodone Bit/Acetaminophen [Hydrocodon-Acetaminophen 5-325] 1 each PO QID # 14 tablet Forms: Return to Work
[2018-09-28 13:00] VITALS: BP 124/83
== END 2018-09-28 12:57 | disposition home or self-care (01) ==
LOC: ER 10:59
DX: M54.6 Pain in thoracic spine (principal); F17.200 Nicotine dependence, unspecified, uncomplicated; Z98.84 Bariatric surgery status; Z98.51 Tubal ligation status
CPT/HCPCS: 99283; 72070; J3490

== ENCOUNTER 2018-10-02 10:55 | Emergency (ER) | payer SELFPAY ==
[2018-10-02 11:02] VITALS: BP 114/73
[2018-10-02] MEDS ORDERED: HYDROCODONE/ACETAMINOPHEN 5-325 MG TABLET PO ONE (12:03)
[2018-10-02] MEDS ORDERED: FAMOTIDINE 20 MG TABLET PO ONE (12:03)
--- NOTE | 2018-10-02 12:03 | ER Document Report ---
ED General Pain - General Chief Complaint: Back Pain Stated Complaint: BACK PAIN Time Seen by Provider: 10/02/18 11:32 Notes: This is a 38-year-old female to the emergency department for evaluation of body aches, chest pain, abdominal pain. States the pain radiates around from her lower abdomen to her back. No fever, no chills. No sweats. No vomiting. No other complaints. TRAVEL OUTSIDE OF THE [place] IN LAST 30 DAYS: No - HPI Onset: Last week Onset/Duration: Gradual, Constant Quality of pain: Achy - Related Data Allergies/Adverse Reactions: No Known Allergies Allergy (Verified 07/10/18 09:06) Past Medical History - General Information source: Patient - Social History Smoking Status: Current Every Day Smoker Cigarette use (# per day): Yes Frequency of alcohol use: None Drug Abuse: None Lives with: Family Family History: Reviewed & Not Pertinent, CAD, Hyperlipidemia, Hypertension, Malignancy - mother's side: grandpa had a brain tumor, Thyroid Disfunction, Other - mother has hx of migraines Patient has suicidal ideation: No Patient has homicidal ideation: No - Past Medical History Cardiac Medical History: Denies: Hx Heart Attack, Hx Hypertension Pulmonary Medical History: Reports: Hx Pneumonia Neurological Medical History: Reports: Hx Migraine. Denies: Hx Seizures Renal/ Medical History: Denies: Hx Peritoneal Dialysis Musculoskeletal Medical History: Denies Hx Arthritis, Reports Hx Musculoskeletal Deformity, Reports Hx Musculoskeletal Trauma Traumatic Medical History: Reports: Hx Fractures Past Surgical History: Reports: Hx Abdominal Surgery - gastric bypass, Hx Gastric Bypass Surgery, Hx Tubal Ligation. Denies: Hx Pacemaker - Immunizations Immunizations up to date: Yes Hx Diphtheria, Pertussis, Tetanus Vaccination: Yes Review of Systems - Review of Systems Notes: Constitutional: denies: Chills, Diaphoresis, Fever, Malaise, Weakness EENT: denies: Eye discharge, Blurred vision, Tearing, Double vision, Nose congestion, Nose discharge, Throat swelling, Mouth pain Cardiovascular: denies: Palpitations, Heart racing, Orthopnea, Dyspnea,. Does complain of chest pain that radiates around to her back. Respiratory: denies: Cough, Hurts to breathe, Wheezing, Shortness of breath Gastrointestinal: denies: Abdominal pain, Diarrhea, Nausea, Vomiting, Black stools, bright red blood in stool Genitourinary: denies: Burning, Dysuria, Discharge, Frequency, Flank pain, Hematuria Musculoskeletal: denies: Joint pain, Joint swelling, Muscle pain, Muscle stiffness, back pain Hematologic/Lymphatic: denies: Anemia, Easy bleeding, Easy bruising, Blood clots Neurological/Psychological: denies: Confusion, Dementia, Depression, Loss of consciousness Skin: No lesions, no masses, no skin breakdown, no abscesses Physical Exam - Vital signs Vitals: Temp Pulse Resp BP Pulse Ox 98.7 F 72 14 114/73 98 10/02/18 11:01 10/02/18 11:01 10/02/18 11:01 10/02/18 11:01 10/02/18 11:01 Interpretation: Normal - General General appearance: Appears well, Alert - HEENT Head: Normocephalic, Atraumatic Eyes: Normal Pupils: PERRL - Respiratory Respiratory status: No respiratory distress Chest status: Nontender Breath sounds: Normal Chest palpation: Normal - Cardiovascular Rhythm: Regular Heart sounds: Normal auscultation Murmur: No - Abdominal Inspection: Normal Distension: No distension Bowel sounds: Normal Tenderness: Nontender Organomegaly: No organomegaly - Back Back: Normal, Nontender - Extremities General upper extremity: Normal inspection, Nontender, Normal color, Normal ROM , Normal temperature General lower extremity: Normal inspection, Nontender, Normal color, Normal ROM , Normal temperature, Normal weight bearing. No: Rome's sign - Neurological Neuro grossly intact: Yes Cognition: Normal Orientation: AAOx4 [place] Coma Scale Eye Opening: Spontaneous [place] Coma Scale Verbal: Oriented [place] Coma Scale Motor: Obeys Commands [place] Coma Scale Total: 15 Speech: Normal Motor strength normal: LUE, RUE, LLE, RLE Sensory: Normal - Psychological Associated symptoms: Normal affect, Normal mood - Skin Skin Temperature: Warm Skin Moisture: Dry Skin Color: Normal Course - Re-evaluation Re-evalutation: 10/02/18 14:03 This is a very well-appearing patient in no acute distress. Negative chest x- ray. Unremarkable labs. More likely this represents some musculoskeletal pain versus other benign pathology. Will recommend that she follow-up with her regular doctor. We will start her on some albuterol and some pain medication. Will discharge at this time. 10/02/18 14:04 Laboratory 10/02/18 10/02/18 10/02/18 12:47 12:47 12:47 WBC 5.2 RBC 4.85 Hgb 12.8 Hct 39.2 MCV 81 MCH 26.4 L MCHC 32.6 RDW 16.1 H Plt Count 234 Seg Neutrophils % 68.7 Lymphocytes % 20.6 Monocytes % 8.4 Eosinophils % 1.6 Basophils % 0.7 Absolute Neutrophils 3.6 Absolute Lymphocytes 1.1 Absolute Monocytes 0.4 Absolute Eosinophils 0.1 Absolute Basophils 0.0 Sodium 142.5 Potassium 4.4 Chloride 105 Carbon Dioxide 26 Anion Gap 12 BUN 7 Creatinine 0.65 Est GFR ( Amer) > 60 Est GFR (Non-Af Amer) > 60 Glucose 96 Calcium 9.0 Total Bilirubin 0.3 Direct Bilirubin 0.2 Neonat Total Bilirubin Not Reportable Neonat Direct Bilirubin Not Reportable Neonat Indirect Bili Not Reportable AST 29 ALT 18 Alkaline Phosphatase 84 Troponin I < 0.012 Total Protein 7.7 Albumin 4.2 Lipase 91.8 Chest X-Ray 10/02/18 12:02 IMPRESSION: Normal chest radiographs. - Vital Signs Vital signs: Temp Pulse Resp BP Pulse Ox 98.7 F 72 14 114/73 98 10/02/18 11:01 10/02/18 11:01 10/02/18 11:01 10/02/18 11:01 10/02/18 11:01 - Laboratory Result Diagrams: 10/02/18 12:47 10/02/18 12:47 Laboratory results interpreted by me: 10/02/18 12:47 MCH 26.4 L RDW 16.1 H - EKG Interpretation by [place] EKG shows normal: Sinus rhythm, [place], Intervals, QRS Complexes, ST-T Waves Discharge - Discharge Clinical Impression: Epigastric abdominal pain Chest pain Qualifiers: Chest pain type: unspecified Qualified Code(s): R07.9 - Chest pain, unspecified Condition: Good Disposition: HOME, SELF-CARE Instructions: Abdominal Pain ([facility]), Chest Pain of Unclear Cause ([facility]) Prescriptions: Albuterol Sulfate [Ventolin 0.083% Neb 2.5 mg/3 mL Ampul] 1 vial NEB Q4 7 Days # 25 vial Hydrocodone/Acetaminophen [[place] 5-325 mg Tablet] 1 tab PO BID PRN 4 Days #8 tablet PRN Reason: Nebulizer [Nebulizer Machine] 1 each MC ASDIR PRN #1 kit PRN Reason: Forms: Return to Work
--- NOTE | 2018-10-02 12:54 | RADIOLOGY REPORT (SQ) ---
EXAM DESCRIPTION: CHEST 2 VIEWS COMPLETED DATE/TIME: 10/02/2018 12:27 pm REASON FOR STUDY: cp COMPARISON: 12/31/2007 EXAM PARAMETERS: NUMBER OF VIEWS: two views TECHNIQUE: Digital Frontal and Lateral radiographic views of the chest acquired. RADIATION DOSE: NA LIMITATIONS: none FINDINGS: LUNGS AND PLEURA: No opacities, masses or pneumothorax. No pleural effusion. MEDIASTINUM AND HILAR STRUCTURES: No masses or contour abnormalities. HEART AND VASCULAR STRUCTURES: Heart normal size. No evidence for failure. BONES: No acute findings. HARDWARE: None in the chest. OTHER: No other significant finding. IMPRESSION: Normal chest radiographs. TECHNICAL DOCUMENTATION: JOB ID: [id number] [employer]- All Rights Reserved Reading location - IP/workstation name: [email or web address]
[2018-10-02 13:10] LABS: ABSOLUTE EOSINOPHILS # (AUTO) 0.1 10^3/uL (0.0-0.6); ABSOLUTE LYMPHOCYTES (AUTO) 1.1 10^3/uL (0.5-4.7); ABSOLUTE MONOCYTES (AUTO) 0.4 10^3/uL (0.1-1.4); ABSOLUTE NEUT (AUTO) 3.6 10^3/uL (1.7-8.2); BASOPHILS % (AUTO) 0.7 % (0-2); EOSINOPHILS % (AUTO) 1.6 % (0-6); HEMATOCRIT 39.2 % (36.0-47.0); HEMOGLOBIN 12.8 g/dL (12.0-15.5); LYMPHOCYTES % (AUTO) 20.6 % (13-45); MEAN CORPUSCULAR HEMOGLOBIN 26.4 pg (27.0-33.4); MEAN CORPUSCULAR HGB CONC 32.6 g/dL (32.0-36.0); MEAN CORPUSCULAR VOLUME 81 fl (80-97); MONOCYTES % (AUTO) 8.4 % (3-13); PLATELET COUNT 234 10^3/uL (150-450); RED BLOOD COUNT 4.85 10^6/uL (3.72-5.28); RED CELL DISTRIBUTION WIDTH 16.1 % (11.5-14.0); SEGMENTED NEUTROPHILS % (AUTO) 68.7 % (42-78); TOTAL CELLS COUNTED % (AUTO) 100 %; WHITE BLOOD COUNT 5.2 10^3/uL (4.0-10.5)
[2018-10-02 13:33] LABS: ALANINE AMINOTRANSFERASE 18 U/L (9-52); ALBUMIN 4.2 g/dL (3.5-5.0); ALKALINE PHOSPHATASE 84 U/L (38-126); ANION GAP 12 (5-19); ASPARTATE AMINO TRANSFERASE 29 U/L (14-36); BILIRUBIN,DIRECT 0.2 mg/dL (0.0-0.4); BILIRUBIN,TOTAL 0.3 mg/dL (0.2-1.3); BLOOD UREA NITROGEN 7 mg/dL (7-20); CARBON DIOXIDE 26 mmol/L (22-30); CHLORIDE 105 mmol/L (98-107); GLUCOSE 96 mg/dL (75-110); LIPASE 91.8 U/L (23-300); POTASSIUM 4.4 mmol/L (3.6-5.0); SODIUM 142.5 mmol/L (137-145); TOTAL PROTEIN 7.7 g/dL (6.3-8.2)
--- NOTE | 2018-10-02 22:00 | EKG REPORT ---
SEVERITY:- NORMAL ECG - SINUS RHYTHM : Confirmed by: Jena Joya MD 02-Oct-2018 22:00:12
== END 2018-10-02 15:06 | disposition home or self-care (01) ==
LOC: ER 10:55
DX: R10.13 Epigastric pain (principal); R07.9 Chest pain, unspecified; M54.9 Dorsalgia, unspecified; M79.10 Myalgia, unspecified site; R10.30 Lower abdominal pain, unspecified; F17.210 Nicotine dependence, cigarettes, uncomplicated
CPT/HCPCS: 36415; 71046; 80053; 83690; 84484; 85025; 93005; 93010; 99284

== ENCOUNTER 2018-10-07 01:34 | Emergency (ER) | payer SELFPAY ==
[2018-10-07 01:40] VITALS: BP 119/78
[2018-10-07] MEDS ORDERED: SILVER SULFADIAZINE 1% CREAM 25 GM TP ONE (02:00)
[2018-10-07] MEDS ORDERED: CEPHALEXIN 500 MG CAPSULE PO ONE (02:00)
--- NOTE | 2018-10-07 02:05 | ER Document Report ---
ED General - General Chief Complaint: Thermal Burn Stated Complaint: BURN ON LEFT ARM Time Seen by Provider: 10/07/18 01:59 Notes: Patient is a 38-year-old female without chronic medical problems who presents with a thermal burn to her left forearm that she sustained 3 days ago. She states this occurred while cooking for Thanksgiving dinner. She states that she treated the area with iodine, sanitary wipes and kept it covered. She notes that there is a dull, burning, constant pain to the area. She states that over the past 24 hours she has noticed a progressively worsening erythematous rash surrounding the burn. She notes that the pain has increased. Nothing seems to improve or worsen her symptoms. Denies history of similar symptoms in the past. She has not contacted her primary care doctor regarding today's concerns. No fever or constitutional symptoms. Denies any additional injuries. TRAVEL OUTSIDE OF THE [place] IN LAST 30 DAYS: No - Related Data Allergies/Adverse Reactions: No Known Allergies Allergy (Verified 07/10/18 09:06) Past Medical History - General Information source: Patient - Social History Smoking Status: Never Smoker Frequency of alcohol use: None Drug Abuse: None Lives with: Family Family History: Reviewed & Not Pertinent, CAD, Hyperlipidemia, Hypertension, Malignancy - mother's side: grandpa had a brain tumor, Thyroid Disfunction, Other - mother has hx of migraines Patient has suicidal ideation: No Patient has homicidal ideation: No - Past Medical History Cardiac Medical History: Denies: Hx Heart Attack, Hx Hypertension Pulmonary Medical History: Reports: Hx Pneumonia Neurological Medical History: Reports: Hx Migraine. Denies: Hx Seizures Renal/ Medical History: Denies: Hx Peritoneal Dialysis Musculoskeletal Medical History: Denies Hx Arthritis, Reports Hx Musculoskeletal Deformity, Reports Hx Musculoskeletal Trauma Traumatic Medical History: Reports: Hx Fractures Past Surgical History: Reports: Hx Abdominal Surgery - gastric bypass, Hx Gastric Bypass Surgery, Hx Tubal Ligation. Denies: Hx Pacemaker - Immunizations Immunizations up to date: Yes Hx Diphtheria, Pertussis, Tetanus Vaccination: Yes Review of Systems - Review of Systems Notes: Constitutional: Negative for fever. HENT: Negative for sore throat. Eyes: Negative for visual changes. Cardiovascular: Negative for chest pain. Respiratory: Negative for shortness of breath. Gastrointestinal: Negative for abdominal pain, vomiting or diarrhea. Genitourinary: Negative for dysuria. Musculoskeletal: Negative for back pain. Skin: Thermal burn to the left forearm with surrounding cellulitis Neurological: Negative for headaches, weakness or numbness. 10 point ROS negative except as marked above and in HPI. Physical Exam - Vital signs Vitals: Temp Pulse Resp BP Pulse Ox 97.3 F 75 17 119/78 98 10/07/18 01:38 10/07/18 01:38 10/07/18 01:38 10/07/18 01:38 10/07/18 01:38 Interpretation: Normal Notes: PHYSICAL EXAMINATION: GENERAL: Well-appearing, well-nourished and in no acute distress. HEAD: Atraumatic, normocephalic. EYES: Pupils equal round and reactive to light, extraocular movements intact, sclera anicteric, conjunctiva are normal. ENT: nares patent, oropharynx clear without exudates. Moist mucous membranes. NECK: Normal range of motion, supple without lymphadenopathy LUNGS: Breath sounds clear to auscultation bilaterally and equal. No wheezes rales or rhonchi. HEART: Regular rate and rhythm without murmurs ABDOMEN: Soft, nontender, normoactive bowel sounds. No guarding, no rebound. No masses appreciated. EXTREMITIES: Normal range of motion, no pitting or edema. No cyanosis. NEUROLOGICAL: No focal neurological deficits. Moves all extremities spontaneously and on command. PSYCH: Normal mood, normal affect. SKIN: Warm, Dry, normal turgor, 1 x 2 cm burn on the left forearm that is a second-degree partial-thickness burn. The burn has now become infected with an associated surrounding area of cellulitis approximately a total of a 2 x 4 cm area of erythema. Course - Re-evaluation Re-evalutation: 10/07/18 02:04 Patient presents with a 1 x 2 cm burn on the left forearm that is a second- degree partial-thickness burn. The burn did occur 3 days ago and the patient did not receive medical treatment. It appears that the burn has now become infected with an associated surrounding area of cellulitis approximately a total of a 2 x 4 cm area of erythema. The wound has been cleaned, dressed with Silvadene and the patient has been started on cephalexin for likely associated strep skin infection. The wound edges have been demarcated. The patient is otherwise well in appearance, vital signs normal limits. No indication for labs or imaging. Tetanus is already up-to-date. At this time will discharge with return precautions and follow-up recommendations. Verbal discharge instructions given a the bedside and opportunity for questions given. Medication warnings reviewed. Patient is in agreement with this plan and has verbalized understanding of return precautions and the need for primary care follow-up in the next 24-72 hours. - Vital Signs Vital signs: Temp Pulse Resp BP Pulse Ox 97.3 F 75 17 119/78 98 10/07/18 01:38 10/07/18 01:38 10/07/18 01:38 10/07/18 01:38 10/07/18 01:38 Discharge - Discharge Clinical Impression: Wound infection, Cellulitis of left forearm Burn of left forearm Qualifiers: Encounter type: initial encounter Burn degree: partial thickness (2nd degree) Qualified Code(s): T22.212A - Burn of second degree of left forearm, initial encounter Condition: Good Disposition: HOME, SELF-CARE Additional Instructions: The rash is likely due to infection of your skin. You need to take the antibiotics as prescribed. Do not stop even if the rash goes away until you have completed all the antibiotics. The area of redness was traced out here in the emergency department with a marking pen. You need to return to emergency department if the redness spreads outside of this area by more than 2 cm in any direction. You should also return if you develop fevers with temperature greater than 101, persistent vomiting, worsening pain, or have any other symptoms that are concerning to you. You were seen for whitehead today. Please clean and dress the areas twice daily and then apply the Silvadene cream that you were sent home with. Keep the area clean and dressed. Please return if you develop pus from the wounds, spreading redness from the areas, worsening pain, or any other symptoms that are worrisome to you. Please follow-up with your primary care doctor in the next 1- 2 days. Prescriptions: Cephalexin Monohydrate [Keflex 500 mg Capsule] 500 mg PO Q6H 7 Days capsule
== END 2018-10-07 02:24 | disposition home or self-care (01) ==
LOC: ER 01:34
DX: T22.212A Burn of second degree of left forearm, initial encounter (principal); L03.114 Cellulitis of left upper limb; X19.XXXA Contact with other heat and hot substances, initial encounter; Y93.G3 Activity, cooking and baking
CPT/HCPCS: 99283

== ENCOUNTER 2018-10-14 10:32 | Emergency (ER) | payer SELFPAY ==
[2018-10-14] MEDS ORDERED: NAPROXEN 250 MG TABLET PO ONE (10:53)
--- NOTE | 2018-10-14 10:55 | ER Document Report ---
ED Medical Screen (RME) - General Chief Complaint: Chest Pain Stated Complaint: CHEST PAIN Time Seen by Provider: 10/14/18 10:46 Notes: Patient is a 38-year-old female that presents to the emergency department for chief complaint of midthoracic back pain, that radiates forward to the chest. States she has some tingling in her left arm as well, this pain has been on and off for about 1 month, seems to worse with lifting and other exertional activities. ROS: Other than noted above, the 12 point review of systems was reviewed with the patient and were negative, all pertinent findings are included in the HPI. PHYSICAL EXAMINATION: Vital signs reviewed. GENERAL: Well-appearing, well-nourished and in no acute distress. HEAD: Atraumatic, normocephalic. EYES: Pupils equal round extraocular movements intact, conjunctiva are normal. ENT: Nares patent NECK: Normal range of motion CV: Heart regular rate and rhythm LUNGS: No respiratory distress Musculoskeletal: Normal range of motion, reproducible tenderness to palpation in the mid thoracic spine, midline, and to the paraspinal musculature on the left. NEUROLOGICAL: Normal speech PSYCH: Normal mood, normal affect. MDM: Patient seen and examined for rapid initial assessment. Vital signs reviewed. Low suspicion for cardiac etiology of this patient's pain, however we will work her up for this, will also obtain x-ray of the thoracic spine, and give naproxen for pain. A comprehensive ED assessment and evaluation of the patient , analysis of test results and completion of the medical decision making process will be conducted by additional ED providers. *Note is created using voice recognition software and may contain spelling, syntax or grammatical errors. TRAVEL OUTSIDE OF THE [place] IN LAST 30 DAYS: No - Related Data Allergies/Adverse Reactions: No Known Allergies Allergy (Verified 07/10/18 09:06) Past Medical History - Social History Chew tobacco use (# tins/day): No Frequency of alcohol use: Occasional Drug Abuse: None Family history: None - Past Medical History Cardiac Medical History: Denies: Hx Heart Attack, Hx Hypertension Pulmonary Medical History: Reports: Hx Pneumonia Neurological Medical History: Reports: Hx Migraine. Denies: Hx Seizures Renal/ Medical History: Denies: Hx Peritoneal Dialysis Musculoskeltal Medical History: Denies Hx Arthritis, Reports Hx Musculoskeletal Deformity, Reports Hx Musculoskeletal Trauma Traumatic Medical History: Reports: Hx Fractures Past Surgical History: Reports: Hx Abdominal Surgery - gastric bypass, Hx Gastric Bypass Surgery, Hx Tubal Ligation. Denies: Hx Pacemaker - Immunizations Immunizations up to date: Yes Hx Diphtheria, Pertussis, Tetanus Vaccination: Yes Physical Exam - Vital signs Vitals: Temp Pulse Resp BP Pulse Ox 98.3 F 66 16 113/70 98 10/14/18 10:38 10/14/18 10:38 10/14/18 10:38 10/14/18 10:38 10/14/18 10:38 Course - Vital Signs Vital signs: Temp Pulse Resp BP Pulse Ox 98.3 F 66 16 113/70 98 10/14/18 10:38 10/14/18 10:38 10/14/18 10:38 10/14/18 10:38 10/14/18 10:38
[2018-10-14 11:36] LABS: ABSOLUTE EOSINOPHILS # (AUTO) 0.1 10^3/uL (0.0-0.6); ABSOLUTE LYMPHOCYTES (AUTO) 1.1 10^3/uL (0.5-4.7); ABSOLUTE MONOCYTES (AUTO) 0.5 10^3/uL (0.1-1.4); ABSOLUTE NEUT (AUTO) 3.7 10^3/uL (1.7-8.2); BASOPHILS % (AUTO) 0.7 % (0-2); EOSINOPHILS % (AUTO) 1.7 % (0-6); HEMATOCRIT 37.6 % (36.0-47.0); HEMOGLOBIN 12.5 g/dL (12.0-15.5); LYMPHOCYTES % (AUTO) 20.8 % (13-45); MEAN CORPUSCULAR HEMOGLOBIN 26.4 pg (27.0-33.4); MEAN CORPUSCULAR HGB CONC 33.3 g/dL (32.0-36.0); MEAN CORPUSCULAR VOLUME 79 fl (80-97); MONOCYTES % (AUTO) 9.7 % (3-13); PLATELET COUNT 238 10^3/uL (150-450); RED BLOOD COUNT 4.75 10^6/uL (3.72-5.28); SEGMENTED NEUTROPHILS % (AUTO) 67.1 % (42-78); TOTAL CELLS COUNTED % (AUTO) 100 %; WHITE BLOOD COUNT 5.4 10^3/uL (4.0-10.5)
--- NOTE | 2018-10-14 11:37 | RADIOLOGY REPORT (SQ) ---
EXAM DESCRIPTION: CHEST 2 VIEWS COMPLETED DATE/TIME: 10/14/2018 11:14 am REASON FOR STUDY: chest pain COMPARISON: 10/01/2018 and earlier EXAM PARAMETERS: NUMBER OF VIEWS: two views TECHNIQUE: Digital Frontal and Lateral radiographic views of the chest acquired. RADIATION DOSE: NA LIMITATIONS: none FINDINGS: LUNGS AND PLEURA: No opacities, masses or pneumothorax. No pleural effusion. MEDIASTINUM AND HILAR STRUCTURES: No masses or contour abnormalities. HEART AND VASCULAR STRUCTURES: Heart normal size. No evidence for failure. BONES: No acute findings. HARDWARE: None in the chest. OTHER: No other significant finding. IMPRESSION: NO ACUTE RADIOGRAPHIC FINDING IN THE CHEST. TECHNICAL DOCUMENTATION: JOB ID: [id number] [employer]- All Rights Reserved Reading location - IP/workstation name: [email or web address]
--- NOTE | 2018-10-14 11:38 | RADIOLOGY REPORT (SQ) ---
EXAM DESCRIPTION: T SPINE AP/LAT COMPLETED DATE/TIME: 10/14/2018 11:14 am REASON FOR STUDY: upper, mid back pain COMPARISON: 09/28/2018 NUMBER OF VIEWS: Two views. TECHNIQUE: AP and lateral radiographic images acquired of the thoracic spine. LIMITATIONS: None. FINDINGS: MINERALIZATION: Normal. ALIGNMENT: Normal. No scoliosis. VERTEBRAE: No fracture or bone lesion. Maintained height, normal segmentation. DISCS: Unchanged mild diffuse loss of the disc heights with small anterior vertebral body osteophytes . HARDWARE: None in the spine. MEDIASTINUM AND SOFT TISSUES: Normal heart size and aortic contour. No soft tissue abnormality. VISUALIZED LUNG ZHANG: Clear. OTHER: No other significant finding. IMPRESSION: 1. No acute fracture or listhesis of the thoracic spine. 2. Unchanged mild degenerative disc disease. TECHNICAL DOCUMENTATION: JOB ID: [id number] [employer]- All Rights Reserved Reading location - IP/workstation name: [email or web address]
[2018-10-14 11:52] LABS: ALANINE AMINOTRANSFERASE 28 U/L (9-52); ALBUMIN 4.3 g/dL (3.5-5.0); ALKALINE PHOSPHATASE 61 U/L (38-126); ANION GAP 11 (5-19); ASPARTATE AMINO TRANSFERASE 40 U/L (14-36); BILIRUBIN,DIRECT 0.4 mg/dL (0.0-0.4); BILIRUBIN,TOTAL 0.8 mg/dL (0.2-1.3); BLOOD UREA NITROGEN 13 mg/dL (7-20); CALCIUM 9.2 mg/dL (8.4-10.2); CARBON DIOXIDE 25 mmol/L (22-30); CHLORIDE 106 mmol/L (98-107); GLUCOSE 93 mg/dL (75-110); POTASSIUM 4.9 mmol/L (3.6-5.0); SODIUM 141.8 mmol/L (137-145); TOTAL PROTEIN 7.6 g/dL (6.3-8.2)
[2018-10-14] MEDS ORDERED: NALBUPHINE HCL INJ 10 MG/1 ML AMPULE IV STA (15:01)
--- NOTE | 2018-10-14 17:50 | ER Document Report ---
ED Cardiac - General Chief Complaint: Chest Pain Stated Complaint: CHEST PAIN Time Seen by Provider: 10/14/18 10:46 Mode of Arrival: Ambulatory Information source: Patient Notes: Patient is a well-nourished well-developed 38-year-old female who comes emergency room with a complaint of chest midepigastric pain with some radiation to her back. Patient tells me that she does have a history of degenerative disc disease in her mid thoracic back area. She states that occasionally it gets flared up. She has a history of some midepigastric pain and discomfort as well and this starts below the breastbone and radiates to the left side of her chest. There is a cardiac history of heart problems in the family with her grandmother. She does smoke about a half a pack a day and her last menstrual period was on the of this month although she has had a tubal ligation. Her past medical history is also pertinent for gastric bypass in 2004. Patient denies any shortness of breath and most of her discomfort and pain seem to have come from 2 different locations per patient and from her back and one from her belly portion. It does radiate to the left side near her heart. TRAVEL OUTSIDE OF THE [place] IN LAST 30 DAYS: No - HPI Patient complains to provider of: Chest pain, Shortness of breath Use of: denies: Alcohol, Amphetamines, Bath salts Was the onset of pain: Sudden Is the pain a: Chronic problem Chest pain location: Substernal, Under breast Quality of pain: Constant, Heaviness, Radiating, Sharp, Throbbing, Tightness Chest pain radiation location: Back Severity now: Mild Severity at worst: Severe Pain level currently: 4 Chest pain precipitating factors: Physical Exertion Cardiac risk factors: Smoker, + Family history Positive cardiac history: Yes Associated symptoms: Anxiety, Headache, Heartburn Exacerbated by: Emotional stress, Coughing, Deep breaths Relieved by: Rest Similar symptoms previously: Yes Recently seen / treated by doctor: No - Related Data Allergies/Adverse Reactions: No Known Allergies Allergy (Verified 10/14/18 10:55) Past Medical History - General Information source: Patient - Social History Smoking Status: Current Some Day Smoker Cigarette use (# per day): Yes Chew tobacco use (# tins/day): No Smoking Education Provided: Yes - 45 sugars a day Frequency of alcohol use: Occasional Drug Abuse: None Occupation: Works at [employer] Lives with: Family Family History: Reviewed & Not Pertinent, CAD, Hyperlipidemia, Hypertension, Malignancy - mother's side: grandpa had a brain tumor, Thyroid Disfunction, Other - mother has hx of migraines Patient has suicidal ideation: No Patient has homicidal ideation: No - Past Medical History Cardiac Medical History: Denies: Hx Heart Attack, Hx Hypertension Pulmonary Medical History: Reports: Hx Pneumonia Neurological Medical History: Reports: Hx Migraine. Denies: Hx Seizures Renal/ Medical History: Denies: Hx Peritoneal Dialysis Musculoskeletal Medical History: Denies Hx Arthritis, Reports Hx Musculoskeletal Deformity, Reports Hx Musculoskeletal Trauma Psychiatric Medical History: Reports: Hx Depression Traumatic Medical History: Reports: Hx Fractures Past Surgical History: Reports: Hx Abdominal Surgery - gastric bypass, Hx Gastric Bypass Surgery, Hx Tubal Ligation. Denies: Hx Pacemaker - Immunizations Immunizations up to date: Yes Hx Diphtheria, Pertussis, Tetanus Vaccination: Yes Review of Systems - Review of Systems Constitutional: No symptoms reported EENT: No symptoms reported Cardiovascular: See HPI Respiratory: No symptoms reported Gastrointestinal: See HPI, Abdominal pain, Nausea Genitourinary: No symptoms reported Female Genitourinary: No symptoms reported Musculoskeletal: See HPI, Back pain Skin: No symptoms reported Hematologic/Lymphatic: No symptoms reported Neurological/Psychological: No symptoms reported -: Yes All other systems reviewed and negative Physical Exam - Vital signs Vitals: Temp Pulse Resp BP Pulse Ox 98.3 F 66 16 113/70 98 10/14/18 10:38 10/14/18 10:38 10/14/18 10:38 10/14/18 10:38 10/14/18 10:38 Interpretation: Normal - Notes Notes: PHYSICAL EXAMINATION: GENERAL: Patient is a well-nourished well-developed obese 38-year-old female who is in no apparent distress on physical exam. She does appears to be somewhat uncomfortable. Movement seems to cause her some discomfort and pain. HEAD: Atraumatic, normocephalic. EYES: Pupils equal round and reactive to light, extraocular movements intact, conjunctiva are normal. ENT: Nares patent, oropharynx clear without exudates. Moist mucous membranes. NECK: Normal range of motion, supple without lymphadenopathy LUNGS: Breath sounds clear to auscultation bilaterally and equal. No wheezes rales or rhonchi. HEART: Regular rate and rhythm without murmurs ABDOMEN: Examination patient's abdomen shows mild distention with some tympany noted in the upper right and left quadrants. Patient has some discomfort and tenderness midepigastric area to palpation. Bowel sounds are present all 4 quads. Liver margin appears normal. Female : deferred Musculoskeletal: Examination of patient's back area shows she has some reproducible tenderness around mid thoracic area between the shoulder blades to palpation. There is some small muscle spasms noted in the area. Patient also has some slight discomfort in palpation along the sternal borders bilaterally. No apparent pain or discomfort in the cervical spine area. Lower lumbar spine patient has full range of motion with flexion extension and rotation without any discomfort.. NEUROLOGICAL Normal speech, normal gait. Normal sensory, motor exams PSYCH: Normal mood, normal affect. SKIN: Warm, Dry, normal turgor, no rashes or lesions noted. Course - Re-evaluation Re-evalutation: 10/14/18 17:59 Patient's exam was basically benign. Her stay in ER was basically uneventful. She ruled out second time with a troponin. On my return to the ER room after the second troponin was run from patient and tears on the bed. She is crying because her her employer had called her and when she told her he was here in the emergency room and that she had complained about her back and how it is been aggravated while at work he got been out of shape and told her that it was a workers comp that he needed to see her tonight and reported in less than 24 hours. Patient was not here for her primary back pain at the time she was here more for epigastric pain and it was a secondary complaint. Not true secondary complaint may have been aggravated at work however we all have aches and pains to get aggravated at work. Does not mean it was caused at work. I told patient I cannot 100% certain state was not because there she had already informed me of the chronic condition before any of this happened. She said this condition been diagnosed a long time ago. So given patient's information and prior to the call coming and I states she was being upfront. So on my second trip back into the room patient is in tears and is in hysterically because she may lose her job. And now she does not have a way to even get to her place of work she is to call someone to come get her. Now I did look patient up on the [facility] aware line drug line. She really does not have a history of seeking behavior she had had 3 incidents of narcotics in this month with denies visit if anything would before. Prior to that she only had a couple of visits in April and a couple visits in March 14 in November 2016. She does not actively appear to be giving narcotic seeking behavior. I meant to retrain patient for a reflux type of a presentation along with upper back discomfort and pain. I will put on a little bit of muscle relaxer for the back along with some tramadol. And for the epigastric pain we will put her on some omeprazole and some Carafate. I believe patient may be working herself into an upper gastric ulcer. Gastric ulcer would cause also related back pain. - Vital Signs Vital signs: Temp Pulse Resp BP Pulse Ox 98.3 F 66 18 106/80 100 10/14/18 10:38 10/14/18 10:38 10/14/18 14:01 10/14/18 14:01 10/14/18 14:01 - Laboratory Result Diagrams: 10/14/18 11:06 10/14/18 11:06 Laboratory results interpreted by me: 10/14/18 10/14/18 11:06 11:06 MCV 79 L MCH 26.4 L RDW 16.0 H AST 40 H Discharge - Discharge Clinical Impression: Peptic ulcer disease, Atypical chest pain Degenerative disk disease Qualifiers: Spinal region: thoracic Qualified Code(s): M51.34 - Other intervertebral disc degeneration, thoracic region Condition: Stable Disposition: HOME, SELF-CARE Instructions: Acid-Suppressing Medication ([facility]), Chest Pain of Unclear Cause ( [facility]), Prilosec (Acid Pump Inhibitor) ([facility]), Reflux Disease (GERD) ([facility]), Ulcer ( [facility]) Additional Instructions: As we discussed you probably have a couple different variants things going on. I believe part of the problem is that you may be starting to form a gastric ulcer. This will cause discomfort and pain in the anterior chest like you are talking about with radiation to the left side. It can also cause back pain. This would run right straight back to your thoracic area. This is a suitable kind of back pain because it is the inflammation causes discomfort and pain in the area. You do have a history of chronic back problems. And most of them as you told me were in the thoracic region and this can get aggravated with any type of activity. Highly suggest that you ice down after work each night and use moist heat in the morning or afternoon before you go to work. If the discomfort and pain continues after taking the medication he may need to follow- up with a primary care provider for further investigation. This can be accomplished by going to the [facility]. Currently here risk factors for cardiac are not super high you her have distant relatives grandmothers that great-grandmother that had cardiac problems that were older when it occurred. No real close family like mother father sisters brothers. You do have other risk factors and you are out slightly overweight, you do smoke , you need to have your cholesterols checked. You are under a lot of stress that has also more risk factors to you. So just because you have ruled out twice does not necessarily mean that you are 100% cardiac free so you will need follow-up eventually regardless. Should you have any concerns or problems return to ER for recheck. Prescriptions: Methocarbamol [Robaxin 750 mg Tablet] 750 mg PO BID PRN #20 tablet PRN Reason: Omeprazole 20 mg PO DAILY #30 capsule. Sucralfate [Carafate 1 gm Tablet] 1 gm PO ACHS #120 tablet Tramadol HCl [Ultram 50 mg Tablet] 50 mg PO TID PRN #20 tab PRN Reason:
[2018-10-14] MEDS ORDERED: LORAZEPAM 1 MG TABLET PO ONE (18:15)
[2018-10-14 18:48] VITALS: BP 138/87
--- NOTE | 2018-10-14 22:40 | EKG REPORT ---
SEVERITY:- NORMAL ECG - SINUS RHYTHM : Confirmed by: Jeferson Barboza MD 14-Oct-2018 22:39:09
== END 2018-10-14 18:45 | disposition home or self-care (01) ==
LOC: ER 10:32
DX: K27.9 Peptic ulcer, site unspecified, unspecified as acute or chronic, without hemorrhage or perforation (principal); M51.34 Other intervertebral disc degeneration, thoracic region; R07.89 Other chest pain; R10.13 Epigastric pain; R11.0 Nausea; R14.0 Abdominal distension (gaseous); M62.830 Muscle spasm of back; F17.210 Nicotine dependence, cigarettes, uncomplicated; Z82.49 Family history of ischemic heart disease and other diseases of the circulatory system; Z98.51 Tubal ligation status; Z98.84 Bariatric surgery status
CPT/HCPCS: 93005; 99285; 96374; 36415; 84703; 85025; 80053; 84484; 71046; 72070; 93010; J2300

== ENCOUNTER 2018-11-05 04:04 | Emergency (ER) | payer SELFPAY ==
[2018-11-05] MEDS ORDERED: IPRATROPIUM/ALBUTEROL 0.5-2.5 MG/3 ML AMPUL NEB ONE (04:29)
--- NOTE | 2018-11-05 04:31 | ER Document Report ---
ED General - General Chief Complaint: Cold Symptoms Stated Complaint: cough, sore throat Time Seen by Provider: 11/05/18 04:14 Mode of Arrival: Ambulatory Information source: Patient Notes: Patient is a 38-year-old female who presents the emergency department with a chief complaint of a cough. She also has a sore throat, feeling dizzy today, or having mild difficulty breathing with chest heaviness. She states she has had pneumonia before, states it was last year. According to her medical records her pneumonia was back in 2014. She states that her symptoms feel similar as to when she had pneumonia. Her medical history includes GERD. She denies any fever. She has had mild diarrhea. Denies nausea or vomiting. TRAVEL OUTSIDE OF THE [place] IN LAST 30 DAYS: No - Related Data Allergies/Adverse Reactions: No Known Allergies Allergy (Verified 10/14/18 10:55) Past Medical History - General Information source: Patient - Social History Smoking Status: Current Some Day Smoker Frequency of alcohol use: None Drug Abuse: None Lives with: Family Family History: Reviewed & Not Pertinent, CAD, Hyperlipidemia, Hypertension, Malignancy - mother's side: grandpa had a brain tumor, Thyroid Disfunction, Other - mother has hx of migraines - Past Medical History Cardiac Medical History: Denies: Hx Heart Attack, Hx Hypertension Pulmonary Medical History: Reports: Hx Pneumonia Neurological Medical History: Reports: Hx Migraine. Denies: Hx Seizures Renal/ Medical History: Denies: Hx Peritoneal Dialysis Musculoskeletal Medical History: Denies Hx Arthritis, Reports Hx Musculoskeletal Deformity, Reports Hx Musculoskeletal Trauma Psychiatric Medical History: Reports: Hx Depression Traumatic Medical History: Reports: Hx Fractures Past Surgical History: Reports: Hx Abdominal Surgery - gastric bypass, Hx Gastric Bypass Surgery, Hx Tubal Ligation. Denies: Hx Pacemaker - Immunizations Immunizations up to date: Yes Hx Diphtheria, Pertussis, Tetanus Vaccination: Yes Review of Systems - Review of Systems Notes: REVIEW OF SYSTEMS: CONSTITUTIONAL : Denies recent illness. Denies recent unintentional weight loss. Denies fever, chills, or sweats. EENT: See HPI CARDIOVASCULAR: Denies chest pain. RESPIRATORY: See HPI GASTROINTESTINAL: Denies nausea, vomiting, and diarrhea. Denies abdominal pain. Denies constipation. GENITOURINARY: Denies difficulty urinating, burning, blood in urine, urgency or frequency. MUSCULOSKELETAL: Denies neck and back pain. Denies joint pain or swelling. SKIN: Denies rash, itchiness, or lesions HEMATOLOGIC : Denies easy bruising or bleeding. LYMPHATIC: Denies swollen, painful, enlarged glands. NEUROLOGICAL: Denies no numbness or tingling denies weakness. Denies headache. Denies altered mental status. Denies alteration in speech. PSYCHIATRIC: Denies stress, anxiety, alteration in sleep patterns, or depression. All other systems reviewed and negative. Physical Exam - Vital signs Vitals: Temp Pulse Resp BP Pulse Ox 97.7 F 91 20 114/78 100 11/05/18 04:08 11/05/18 04:08 11/05/18 04:08 11/05/18 04:08 11/05/18 04:08 - Notes Notes: PHYSICAL EXAMINATION: GENERAL: Appears well, healthy, well-nourished, no acute distress. HEAD: Normocephalic, atraumatic. EYES: PERRL, conjunctiva normal, all extraocular movements intact, sclera nonicteric ENT: Moist mucous membranes. Mild erythema noted to oropharynx. No purulent drainage noted. NECK: Supple, no noticeable swelling, redness, rash. Normal range of motion. LUNGS: Expiratory wheezes bilaterally in the upper lobes. Diminished breath sounds in the bases. CARDIOVASCULAR: S1-S2, regular rate, regular rhythm. Radial pulses 2+, normal. ABDOMEN: Normoactive bowel sounds. Soft, nontender, no guarding, no rebound tenderness, and no masses palpated. EXTREMITIES: Normal strength and range of motion, no pitting or edema. No cyanosis. NEUROLOGICAL: Moves all extremities upon command. Strength 5/5 in all extremities. PSYCH: Normal mood, normal affect. SKIN: Warm, dry. No rash, lesions, ulcerations noted. Normal skin turgor. Course - Re-evaluation Re-evalutation: Differential diagnosis includes upper respiratory infection, pneumonia, or other upper respiratory etiologies. 11/05/18 04:39 Patient had expiratory wheezes to auscultation in the bilateral upper lobes. She diminished breath sounds in the lower lobes. She will be given a DuoNeb treatment and a chest x-ray will be obtained. 11/05/18 05:13 Patient's chest x-ray is normal, ruling out pneumonia. Her breath sounds are now clear. I suspect the cause of her sore throat and cough are due to a viral infection. I suspect that her chest heaviness is from her cough. I suspect that her dizziness is from having congestion. She has no focal neurological deficits, therefore I do not suspect she has any acute intracranial process. I do not suspect she has any life-threatening issues at this time. She will be given Tessalon Perles for her cough. I have advised her to drink hot tea, and take Motrin and Tylenol as needed for her sore throat. Return precautions were discussed. Verbal discharge instructions were given to the patient. They verbalized understanding. They are stable for discharge. - Vital Signs Vital signs: Temp Pulse Resp BP Pulse Ox 97.7 F 91 20 114/78 100 11/05/18 04:08 11/05/18 04:08 11/05/18 04:08 11/05/18 04:08 11/05/18 04:08 Discharge - Discharge Clinical Impression: Cough Condition: Stable Disposition: HOME, SELF-CARE Additional Instructions: You were seen today in the emergency department for a cough. Your chest x-ray is normal. Your symptoms are most likely caused by an upper respiratory viral infection. Upper respiratory viral infections usually resolve on their own. You have been given Tessalon Perles to help with your cough. You may take these every 8 hours as needed for your cough. You may take acetaminophen 1000 mg and ibuprofen 600 mg as needed for pain. Please drink some warm tea to help soothe your throat. Make sure you blow your nose often, so the drainage from your nose does not go down your throat and irritated it. If you develop a fever greater than 100.4 F, develop worsening difficulty breathing, or have any symptoms that are worrisome to you, please return to the emergency department. Prescriptions: Benzonatate [Tessalon Perles 100 mg Capsule] 100 mg PO Q8HP PRN #40 capsule PRN Reason: Forms: Return to Work
--- NOTE | 2018-11-05 04:59 | RADIOLOGY REPORT (SQ) ---
Chest single view on 11/05/2018 CLINICAL INDICATION: Cough COMPARISON: 10/14/2018 FINDINGS: The lungs are clear. There is a small hiatal hernia. Cardiac, hilar and mediastinal contours are within normal limits. Pulmonary vascularity is within normal limits. No bony abnormality is noted. IMPRESSION: No active disease.
[2018-11-05 05:26] VITALS: BP 112/67
== END 2018-11-05 05:26 | disposition home or self-care (01) ==
LOC: ER 04:04
DX: J02.9 Acute pharyngitis, unspecified (principal); R05 Cough; F17.200 Nicotine dependence, unspecified, uncomplicated; Z98.84 Bariatric surgery status; Z98.51 Tubal ligation status
CPT/HCPCS: 94640; 99283; 71045; J7620

== ENCOUNTER 2019-05-21 19:12 | Emergency (ER) | payer MEDICAID ==
--- NOTE | 2019-05-21 19:59 | ER Document Report ---
ED General - General Chief Complaint: Toe Injury Stated Complaint: POSSIBLE BROKEN TOE, LEFT FOOT Time Seen by Provider: 05/21/19 19:58 Primary Care Provider: JAVIER MAX MD [ACTIVE STAFF] - Follow up tomorrow (CALL TOMORROW FOR CLOSE FOLLOW UP WITH ORTHOPEDIST. FAILURE TO FOLLOW UP COULD LEAD TO PERMANENT PAIN, DEFORMITY, DYSFUNCTION. ) TRAVEL OUTSIDE OF THE [place] IN LAST 30 DAYS: No - HPI Notes: 38 year old female to the ED with C/O left great toe pain that began just [employer]. States that she was stepping over a mattress when her toe got hung up and she thinks she broke it. States it is deformed. Denies any wounds. States it hurts to bear any weight. Did not take any medicine prior to arrival. - Related Data Allergies/Adverse Reactions: No Known Allergies Allergy (Verified 05/21/19 19:35) Past Medical History - General Information source: Patient - Social History Smoking Status: Never Smoker Frequency of alcohol use: None Drug Abuse: None Family History: Reviewed & Not Pertinent, CAD, Hyperlipidemia, Hypertension, Malignancy - mother's side: grandpa had a brain tumor, Thyroid Disfunction, Other - mother has hx of migraines - Past Medical History Cardiac Medical History: Denies: Hx Heart Attack, Hx Hypertension Pulmonary Medical History: Reports: Hx Pneumonia Neurological Medical History: Reports: Hx Migraine. Denies: Hx Seizures Renal/ Medical History: Denies: Hx Peritoneal Dialysis Musculoskeletal Medical History: Denies Hx Arthritis, Reports Hx Musculoskeletal Deformity, Reports Hx Musculoskeletal Trauma Psychiatric Medical History: Reports: Hx Depression Traumatic Medical History: Reports: Hx Fractures Past Surgical History: Reports: Hx Abdominal Surgery - gastric bypass, Hx Gastric Bypass Surgery, Hx Tubal Ligation. Denies: Hx Pacemaker - Immunizations Immunizations up to date: Yes Hx Diphtheria, Pertussis, Tetanus Vaccination: Yes Review of Systems - Review of Systems Constitutional: denies: Chills, Fever EENT: No symptoms reported Cardiovascular: No symptoms reported Respiratory: No symptoms reported Gastrointestinal: No symptoms reported Musculoskeletal: Joint pain, Joint swelling, Deformity - left great toe pain and deformity Skin: Other - denies wounds Neurological/Psychological: No symptoms reported -: Yes All other systems reviewed and negative Physical Exam - Vital signs Vitals: Temp Pulse Resp BP Pulse Ox 97.9 F 93 20 141/105 H 98 05/21/19 19:40 05/21/19 19:40 05/21/19 19:40 05/21/19 19:40 05/21/19 19:40 Interpretation: Hypertensive - General General appearance: Anxious In distress: Moderate Notes: moderate pain distress - HEENT Head: Normocephalic, Atraumatic Eyes: Normal Pupils: PERRL - Respiratory Respiratory status: No respiratory distress Chest status: Nontender Breath sounds: Normal Chest palpation: Normal - Cardiovascular Rhythm: Regular Heart sounds: Normal auscultation Murmur: No - Abdominal Inspection: Normal Distension: No distension Bowel sounds: Normal Tenderness: Nontender Organomegaly: No organomegaly - Extremities Foot: Deformity, Unable to bear weight, Other - to the left great toe there is a noted deformity with the toe going towards the medial aspect of the foot. Patient is not able to wiggle the toe due to pain. very TTP over the proximal aspect of the left great toe with noted evolving edema and ecchymosis. DP pulses intact and equal. Non tender to palpation all other toes, forefoot, midfoot, and hindfoot. No TTP over the left ankle. - Neurological Neuro grossly intact: Yes Cognition: Normal Orientation: AAOx4 Armin Coma Scale Eye Opening: Spontaneous [place] Coma Scale Verbal: Oriented Armin Coma Scale Motor: Obeys Commands Armin Coma Scale Total: 15 Speech: Normal Motor strength normal: LUE, RUE, LLE, RLE Sensory: Normal - Psychological Associated symptoms: Normal affect, Normal mood - Skin Skin Temperature: Warm Skin Moisture: Dry Skin Color: Normal Course - Vital Signs Vital signs: Temp Pulse Resp BP Pulse Ox 98.2 F 91 16 138/85 H 99 05/21/19 21:41 05/21/19 21:41 05/21/19 21:41 05/21/19 21:41 05/21/19 21:41 - Transfer of Care Notes: 05/21/19 20:[address] Bar, ER Attending. He agrees with the plan for reduction of the toe. Agrees with plan for cesar tape, post op shoe, crutches, and close ortho follow up. 05/22/19 impression: Left great toe comminuted fracture that had some significant displacement on exam. A digital block was applied to the toe and toe was reduced to improve alignment. X-ray shows only mild displacement after reduction. Plan to discharge home on crutches and a postop shoe and cesar taped and have her call orthopedist tomorrow without fail. We have discussed that this is a significant toe fracture and that she will require follow-up with orthopedist. Failure to follow-up could lead to permanent pain, dysfunction, deformity or disability. Patient voiced understanding and agrees with plan. Procedures - Joint Reduction/Fracture Care Left Proximal Toe Great toe Consent obtained: Yes Conscious sedation: No Pre-procedure NV exam: Yes Fracture: Closed Manipulation comment: Traction Post-procedure NV exam: Yes Reduction attempts: 1 Complications: No Notes: 05/22/19 a digital block was given to patient to the left great toe. approximately 5 cc of 1% lidocaine without epi was applied to the toe with good anesthesia. After anesthesia was achieved, direct traction was applied to the toe and better positioning was obtained. Splint -- cesar tape and post op shoe placement was applied. Repeat XR was done -- there was improvement from prior film with better alignment. Discharge - Discharge Clinical Impression: Comminuted fracture Fractured great toe Qualifiers: Encounter type: initial encounter Fracture type: closed Phalanx: proximal Fracture alignment: displaced Laterality: left Qualified Code(s): S92.412A - Displaced fracture of proximal phalanx of left great toe, initial encounter for closed fracture Condition: Stable Disposition: HOME, SELF-CARE Instructions: Fractured Toe ([facility]) Additional Instructions: REST, ICE, ELEVATE THE TOE AND FOOT. CALL ORTHOPEDIST TOMORROW FOR VERY CLOSE OUTPATIENT FOLLOW UP. NO WEIGHT BEARING. USE MEDICINES PRESCRIBED. PUSH FLUIDS. KEEP TOE SPLINTED AND IN POST OP SHOE. Prescriptions: Oxycodone HCl/Acetaminophen [Percocet 5-325 mg Tablet] 1 tab PO Q6H PRN #15 tab PRN Reason: Referrals: JAVIER MAX MD [ACTIVE STAFF] - Follow up tomorrow (CALL TOMORROW FOR CLOSE FOLLOW UP WITH ORTHOPEDIST. FAILURE TO FOLLOW UP COULD LEAD TO PERMANENT PAIN, DEFORMITY, DYSFUNCTION. )
[2019-05-21] MEDS ORDERED: OXYCODONE-ACETAMINOPHEN 5-325 MG TABLET PO ONE ×2 (20:21→21:40)
[2019-05-21] MEDS ORDERED: LIDOCAINE 1% INJ (10 MG/ML) 10 ML MDV SUBCUT ONE (20:23)
--- NOTE | 2019-05-21 20:49 | RADIOLOGY REPORT (SQ) ---
EXAM DESCRIPTION: XR TOES 2 OR MORE VIEWS COMPLETED DATE/TME: 05/21/2019 19:54 CLINICAL HISTORY: 38 years, Female, toe injury, L great toe COMPARISON: None. NUMBER OF VIEWS: Three view TECHNIQUE: AP lateral and oblique LIMITATIONS: None. FINDINGS: There is a comminuted fracture of the first proximal phalanx with fracture lines extending to the metatarsophalangeal and interphalangeal joint spaces. There is medial angulation of the distal fracture fragments. IMPRESSION: Comminuted intra-articular fracture of the first proximal phalanx copyright 2010 [employer] [facility] [employer] [place]- All Rights Reserved
[2019-05-21 21:42] VITALS: BP 138/85
--- NOTE | 2019-05-21 22:15 | RADIOLOGY REPORT (SQ) ---
EXAM DESCRIPTION: XR FOOT 1-2 VIEWS COMPLETED DATE/TME: 05/21/2019 21:25 CLINICAL HISTORY: 38 years, Female, post reduction COMPARISON: None NUMBER OF VIEWS: 1 TECHNIQUE: Single AP view of the left foot LIMITATIONS: None. FINDINGS: Comminuted fracture deformity of the proximal phalanx of the great toe. Mild displacement. Associated soft tissue swelling. No dislocation IMPRESSION: Comminuted, mildly displaced fracture of the proximal phalanx of the great toe copyright 2010 [employer]- All Rights Reserved
== END 2019-05-21 21:47 | disposition home or self-care (01) ==
LOC: ER 19:12
DX: S92.412A Displaced fracture of proximal phalanx of left great toe, initial encounter for closed fracture (principal); X58.XXXA Exposure to other specified factors, initial encounter; Z98.84 Bariatric surgery status
CPT/HCPCS: 99283; 73620; 73660; 28495; J3490

== ENCOUNTER 2019-09-02 09:51 | Emergency (ER) | payer MEDICAID ==
[2019-09-02 09:57] VITALS: BP 135/73
--- NOTE | 2019-09-02 11:54 | RADIOLOGY REPORT (SQ) ---
EXAM DESCRIPTION: TOE LEFT COMPLETED DATE/TIME: 09/02/2019 10:44 am REASON FOR STUDY: pt injured L pinkey toe, toe noted to be bruised COMPARISON: 05/21/2019 left great toe NUMBER OF VIEWS: Three views. TECHNIQUE: AP, lateral, and oblique images acquired of the left fifth toe. LIMITATIONS: None. FINDINGS: No acute fracture or malalignment along the left 5th toe. 5th metatarsal intact. There is bony remodeling along the great toe proximal phalanx from healed fracture seen on 05/21/2019. Remainder of the bones of the forefoot are intact. IMPRESSION: No acute fracture or malalignment along the left 5th toe. Healed left great toe proximal phalanx fracture. COMMENT: SITE OF TRAUMA/COMPLAINT MARKED/STAMP COMPLETED: Yes TECHNICAL DOCUMENTATION: JOB ID: [id number] [employer]- All Rights Reserved Reading location - IP/workstation name: [email or web address]
== END 2019-09-02 12:14 | disposition left against medical advice (07) ==
LOC: ER 09:51
DX: Z53.21 Procedure and treatment not carried out due to patient leaving prior to being seen by health care provider (principal)

== ENCOUNTER 2019-10-24 10:40 | Emergency (ER) | payer MEDICAID ==
[2019-10-24 11:00] VITALS: BP 132/77
[2019-10-24] MEDS ORDERED: IBUPROFEN 600 MG TABLET PO ONE (11:20)
[2019-10-24] MEDS ORDERED: GUAIFENESIN 600 MG TABLET.SA PO ONE (11:20)
[2019-10-24] MEDS ORDERED: PSEUDOEPHEDRINE HCL 30 MG TABLET PO ONE (11:20)
[2019-10-24] MEDS ORDERED: LORATADINE 10 MG TABLET PO ONE (11:20)
--- NOTE | 2019-10-24 11:26 | ER Document Report ---
ED Respiratory Problem - General Chief Complaint: Cough Stated Complaint: SHORTNESS OF BREATH Time Seen by Provider: 10/24/19 11:20 Primary Care Provider: [facility] [Provider Group] - Follow up as needed [facility] [Provider Group] - Follow up as needed [facility] [Provider Group] - Follow up as needed [facility] [Provider Group] - Follow up as needed Mode of Arrival: Ambulatory Information source: Patient Notes: 39-year-old female presents to ED for cough cold congestion sore throat. She states it hurts when she takes a cough or deep breathes states she has been coughing. She states she has been taking TheraFlu but she only had a little bit this morning so she took that. She states she does smoke cigarettes to 3 times a week when she drinks but otherwise she does not smoke. She is alert oriented respirations regular nonlabored lungs are clear to auscultation. She was concerned because she states it hurts every time she takes a deep breath. I told her I could do a chest x-ray if she really wanted but that her lungs were clear at this time and she is afebrile. She stated no she would try this medicine first. I did review the medicine again and she verbalized understanding and she will be discharged home. TRAVEL OUTSIDE OF THE [place] IN LAST 30 DAYS: No - HPI Patient complains to provider of: Chest pain, Cough - With cough Onset: Other - 3 to 4 days Duration: Continuous Initiating Event: URI Quality of pain: Burning - With cough Severity: Moderate Pain Level: 3 Context: Smoker Cough: Productive Sputum amount: None, Small Sputum color: Clear Sputum consistency: Thick Associated symptoms: PND, Runny nose, Sore Throat - Okay Similar symptoms previously: Yes Recently seen / treated by doctor: No - Related Data Allergies/Adverse Reactions: No Known Allergies Allergy (Verified 05/21/19 19:35) Past Medical History - General Information source: Patient - Social History Smoking Status: Current Every Day Smoker Cigarette use (# per day): Yes - 2-3 times a week Smoking Education Provided: Yes - 4 minutes Frequency of alcohol use: Occasional Drug Abuse: None Lives with: Family Family History: CAD, Hyperlipidemia, Hypertension, Malignancy - mother's side: grandpa had a brain tumor, Thyroid Disfunction, Other - mother has hx of migraines Patient has suicidal ideation: No Patient has homicidal ideation: No - Past Medical History Cardiac Medical History: Reports: None Pulmonary Medical History: Reports: Hx Pneumonia EENT Medical History: Reports: None Neurological Medical History: Reports: Hx Migraine Endocrine Medical History: Reports: None Renal/ Medical History: Reports: None Malignancy Medical History: Reports: None GI Medical History: Reports: None Musculoskeletal Medical History: Reports Hx Musculoskeletal Deformity, Reports Hx Musculoskeletal Trauma Skin Medical History: Reports None Psychiatric Medical History: Reports: Hx Depression Traumatic Medical History: Reports: Hx Fractures Infectious Medical History: Reports: None Past Surgical History: Reports: Hx Abdominal Surgery - gastric bypass, Hx Gastric Bypass Surgery, Hx Tubal Ligation - Immunizations Immunizations up to date: Yes Hx Diphtheria, Pertussis, Tetanus Vaccination: Yes Review of Systems - Review of Systems Constitutional: Recent illness EENT: Nose congestion, Nose discharge, Sinus pressure, Sinus discharge Cardiovascular: No symptoms reported Respiratory: Cough Gastrointestinal: No symptoms reported Genitourinary: No symptoms reported Female Genitourinary: No symptoms reported Musculoskeletal: No symptoms reported Skin: No symptoms reported Hematologic/Lymphatic: No symptoms reported Neurological/Psychological: No symptoms reported -: Yes All other systems reviewed and negative Physical Exam - Vital signs Vitals: Temp Pulse Resp BP Pulse Ox 97.9 F 65 16 132/77 H 98 10/24/19 10:58 10/24/19 10:58 10/24/19 10:58 10/24/19 10:58 10/24/19 10:58 Interpretation: Normal - General General appearance: Appears well, Alert - HEENT Head: Normocephalic, Atraumatic Eyes: Normal Pupils: PERRL Ears: Normal External canal: Normal Tympanic membrane: Normal Sinus: Normal Nasal: Purulent discharge, Swelling Mouth/Lips: Normal Mucous membranes: Normal Pharynx: Post nasal drainage Neck: Normal - Respiratory Respiratory status: No respiratory distress Chest status: Nontender Breath sounds: Nonproductive cough Chest palpation: Normal - Cardiovascular Rhythm: Regular Heart sounds: Normal auscultation Murmur: No - Abdominal Inspection: Normal Distension: No distension Bowel sounds: Normal Tenderness: Nontender Organomegaly: No organomegaly - Back Back: Normal, Nontender - Extremities General upper extremity: Normal inspection, Nontender, Normal color, Normal ROM, Normal temperature General lower extremity: Normal inspection, Nontender, Normal color, Normal ROM, Normal temperature, Normal weight bearing. No: Rome's sign - Neurological Neuro grossly intact: Yes Cognition: Normal Orientation: AAOx4 Armin Coma Scale Eye Opening: Spontaneous Armin Coma Scale Verbal: Oriented Zullinger Coma Scale Motor: Obeys Commands Armin Coma Scale Total: 15 Speech: Normal Motor strength normal: LUE, RUE, LLE, RLE Sensory: Normal - Psychological Associated symptoms: Normal affect, Normal mood - Skin Skin Temperature: Warm Skin Moisture: Dry Skin Color: Normal Course - Vital Signs Vital signs: Temp Pulse Resp BP Pulse Ox 97.9 F 65 16 132/77 H 98 10/24/19 11:16 10/24/19 10:58 10/24/19 11:16 10/24/19 10:58 10/24/19 11:16 Discharge - Discharge Clinical Impression: URI (upper respiratory infection) Qualifiers: URI type: unspecified viral URI Qualified Code(s): J06.9 - Acute upper respiratory infection, unspecified Condition: Stable Disposition: HOME, SELF-CARE Additional Instructions: UPPER RESPIRATORY ILLNESS: You have a viral infection of the respiratory passages -- a "cold." This common infection causes nasal congestion, drainage, and often sore throat and cough. It is highly contagious. The disease usually lasts about 10 to 14 days. There is no "cure" for the viral infection -- it must run its course. If there is a complication, such as bacterial infection in the nose, sinuses, middle ear, or bronchial tubes, antibiotics may be required. The antibiotics won't affect the virus. Drink plenty of fluids. A humidifier may help. An expectorant medication or decongestant may make you more comfortable. Use acetaminophen or ibuprofen for fever or aches. See the doctor if fever persists over two days, if there is any significant worsening of your symptoms, or if you simply fail to improve as expected. You were treated with Claritin 10 mg Sudafed 30 mg and you have been taken Mucinex 600 mg. These are all spov-zfv-ecoqmzi medications for cough cold congestion. You do need to call the go to the pharmacist to get the Sudafed from behind the counter please get a little red pills they are more effective. He could also use Flonase which is lsvj-upy-zbueixm 1 spray each nostril twice a day. He could also use salt soda solution gargles. These will help to remove the drainage from the back your throat. Chloraseptic spray was ghwo-uok-jxeymir that will also help with your sore throat. Salt and soda solution gargle 1 quart of water 1 tablespoon of salt 1 teaspoon of baking soda Mixed 3 ingredients together and boil for 1 minute Placed in a covered quart jar Use 1/2 ounce of cold solution to gargle 3 times a day COUGH-SUPPRESSANT & EXPECTORANT MEDICATION: You are to use a cough medication as needed for relief of symptoms. This medicine is a combination of an expectorant (to make the mucous thinner and more easily "coughed up") and a cough suppressant (to reduce the frequency of coughing). The cough-suppressant medicine is related to narcotics. You may experience mild nausea and sleepiness. Some patients who are very sensitive to narcotics may have stomach pain from this medicine. Taking the medicine with food reduces these side effects. Do not drive or work with machinery until you know how this medicine affects you. The expectorant should have no side effects. Iodine-containing expectorants (such as organidin) should not be taken by persons with active thyroid disease unless approved by your doctor. Call the doctor if you develop shortness of breath, hives, rash, itching, lightheadedness, or severe nausea and vomiting. USE OF ACETAMINOPHEN (Tylenol): Acetaminophen may be taken for pain relief or fever control. It's much safer than aspirin, offering a wider range of "safe" dosages. It is safe during . Some brand names are Tylenol, Panadol, Datril, Anacin 3, Tempra, and Liquiprin. Acetaminophen can be repeated every four hours. The following are maximum recommended dosages: >89 pounds or adults 650 mg to 900 mg Acetaminophen can be repeated every four hours. Maximum dose not to exceed 4000 mg a day. SMOKING: If you smoke, you should stop smoking. The tar and chemicals in cigarette smoke are harmful. Smoking has been shown to cause: emphysema chronic bronchitis lung cancer mouth and throat cancer stomach and pancreas cancer premature aging defects In addition, smoking increases ear and lung infections in children of smokers. FOLLOW-UP CARE: If you have been referred to a physician for follow-up care, call the physicians office for an appointment as you were instructed or within the next two days. If you experience worsening or a significant change in your symptoms, notify the physician immediately or return to the Emergency Department at any time for re-evaluation. Forms: Elevated Blood Pressure, Smoking Cessation Education Referrals: [facility] [Provider Group] - Follow up as needed [facility] [Provider Group] - Follow up as needed [facility] [Provider Group] - Follow up as needed [facility] [Provider Group] - Follow up as needed
== END 2019-10-24 11:31 | disposition home or self-care (01) ==
LOC: ER 10:40
DX: J06.9 Acute upper respiratory infection, unspecified (principal); R06.02 Shortness of breath; F17.210 Nicotine dependence, cigarettes, uncomplicated; Z98.84 Bariatric surgery status
CPT/HCPCS: J3490 ×3; 99283; 99406

== ENCOUNTER 2020-02-21 19:37 | Emergency (ER) | payer MEDICAID ==
[2020-02-21 19:42] VITALS: BP 120/88
[2020-02-21] MEDS ORDERED: PENICILLIN V POTASSIUM 500 MG TABLET PO ONE (20:04)
[2020-02-21] MEDS ORDERED: HYDROCODONE/ACETAMINOPHEN 5-325 MG (6 TAB/ER DISP) PO PRN (20:04)
--- NOTE | 2020-02-21 20:05 | ER Document Report ---
HPI - HPI Time Seen by Provider: 02/21/20 19:52 Pain Level: 4 Notes: 39-year-old female patient presents the emergency department chief complaint of dental pain around tooth #18 and 17. Patient reports dental pain for the last few days. Denies any fevers. States she tried calling a dentist however all dentist are close due to the pandemic. - CONSTITUTIONAL Constitutional: DENIES: Fever, Chills - REPRODUCTIVE Reproductive: DENIES: : Past Medical History - General Information source: Patient - Social History Smoking Status: Former Smoker Family History: Reviewed & Not Pertinent, CAD, Hyperlipidemia, Hypertension, Malignancy, Thyroid Disfunction, Other Patient has suicidal ideation: No Patient has homicidal ideation: No - Past Medical History Cardiac Medical History: Denies: Hx Heart Attack, Hx Hypertension Pulmonary Medical History: Reports: Hx Pneumonia Neurological Medical History: Reports: Hx Migraine. Denies: Hx Seizures Renal/ Medical History: Denies: Hx Peritoneal Dialysis Musculoskeletal Medical History: Denies Hx Arthritis, Reports Hx Musculoskeletal Deformity, Reports Hx Musculoskeletal Trauma Psychiatric Medical History: Reports: Hx Depression Traumatic Medical History: Reports: Hx Fractures Past Surgical History: Reports: Hx Abdominal Surgery - gastric bypass, Hx Gastric Bypass Surgery, Hx Tubal Ligation. Denies: Hx Pacemaker - Immunizations Immunizations up to date: Yes Hx Diphtheria, Pertussis, Tetanus Vaccination: Yes Vertical Provider Document - CONSTITUTIONAL Notes: PHYSICAL EXAMINATION: GENERAL: Well-appearing, well-nourished and in no acute distress. HEAD: Atraumatic, normocephalic. EYES: Pupils equal round extraocular movements intact, conjunctiva are normal. ENT: Nares patent, erythema surrounding tooth #17 and 18, no bessy abscess, no trismus, no evidence of Sanjuana's angina, there is a hole in tooth #17. NECK: Normal range of motion LUNGS: No respiratory distress Musculoskeletal: Normal range of motion NEUROLOGICAL: Normal speech, normal gait. PSYCH: Normal mood, normal affect. SKIN: Warm, Dry, normal turgor, no rashes or lesions noted. - INFECTION CONTROL TRAVEL OUTSIDE OF THE [place] IN LAST 30 DAYS: No Course - Re-evaluation Re-evalutation: 02/21/20 20:10 Presentation is most consistent with likely an infected tooth. Airway is patent. Vitals within normal limits. Patient is able swallow without any difficulty. There is no significant facial swelling. No evidence of Arsalan angina, apical abscess, or airway obstruction. Patient will be started on antibiotics. I've instructed to follow-up with dentistry as earliest ability for definitive management. At this time will discharge with return precautions and follow-up recommendations. Verbal discharge instructions given a the bedside and opportunity for questions given. Medication warnings reviewed. Patient is in agreement with this plan and has verbalized understanding of return precautions and the need for primary care follow-up in the next 24-72 hours. - Vital Signs Vital signs: Temp Pulse Resp BP Pulse Ox 98.0 F 101 H 16 120/88 H 96 02/21/20 19:41 02/21/20 19:41 02/21/20 19:41 02/21/20 19:41 02/21/20 19:41 Discharge - Discharge Clinical Impression: Pain, dental Condition: Stable Disposition: HOME, SELF-CARE Additional Instructions: You have been seen for dental pain. It is very important that you follow-up with a dentist for definitive care. Please return if you develop fever greater than 101, swelling in your face, vomiting, difficulty breathing or swallowing, or any other symptoms that are concerning to you. For pain you should take ibuprofen 800 mg every 8 hours as needed. Take the narcotic pain medication only as needed for severe pain, you can take 1 to 2 tablets every 6 hours. Take the antibiotic as prescribed, complete the entire course even if your symptoms improve. Prescriptions: Penicillin V Potassium [Penicillin Vk 500 mg Tablet] 500 mg PO BID #20 tablet Forms: Return to Work Referrals: BESSY MELVIN PA-C [Primary Care Provider] - Follow up as needed
== END 2020-02-21 20:14 | disposition home or self-care (01) ==
LOC: ER 19:37
DX: K08.89 Other specified disorders of teeth and supporting structures (principal)
CPT/HCPCS: 99282; J3490